=== PATIENT | female | born 1955 | race Caucasian/White ===

== ENCOUNTER 2020-04-15 08:35 | Outpatient (REF) | payer OTHER, SELFPAY ==
[2020-04-15 10:41] LABS: Anion Gap 13 (12-20); Blood Urea Nitrogen 10 mg/dL (9-16); Calcium 8.9 mg/dL (8.4-10.2); Carbon Dioxide 24 mmol/L (22-29); Chloride 107 mmol/L (96-108); Estimated Glomerular Filt Rate > 60; Glucose Fasting 101 mg/dL (60-99); Potassium 4.3 mmol/l (3.3-5.1); Sodium 140 mmol/L (135-145)
[2020-04-15 10:43] LABS: Cholesterol 246 mg/dL; HDL Cholesterol 51 mg/dL; LDL Cholesterol Calculated 158 mg/dl; Triglycerides 186 mg/dL
[2020-04-15 11:14] LABS: Creatinine Urine 64.57 mg/dL; Microalbumin Urine < 5.0 mg/L
== END 2020-04-15 08:36 | disposition home or self-care (01) ==
LOC: HO.WFDLDS 08:35
PROVIDERS: Visit Provider Family Medicine
DX: I10 Essential (primary) hypertension (principal)
CPT/HCPCS: 80048; 80061; 82043

== ENCOUNTER 2020-06-03 11:57 | Outpatient (REF) | payer OTHER, SELFPAY | END 2020-06-03 11:58 | disposition home or self-care (01) | LOC: HO.WFDLDS 11:57 | PROVIDERS: Visit Provider Family Medicine | DX: Z20.828 Contact with and (suspected) exposure to other viral communicable diseases (principal) | CPT/HCPCS: U0003 ==

== ENCOUNTER 2020-09-10 10:39 | Outpatient (REF) | payer MEDICARE, OTHER, SELFPAY ==
[2020-09-10 14:00] LABS: Cholesterol 271 mg/dL; HDL Cholesterol 52 mg/dL; LDL Cholesterol Calculated 186 mg/dl; Triglycerides 167 mg/dL
[2020-09-11 08:07] LABS: LDL Cholesterol Direct 182 mg/dL (<100)
== END 2020-09-10 10:40 | disposition home or self-care (01) ==
LOC: HO.WFDLDS 10:39
PROVIDERS: Visit Provider Family Medicine
DX: Z00.00 Encounter for general adult medical examination without abnormal findings (principal); E78.5 Hyperlipidemia, unspecified; R73.01 Impaired fasting glucose
CPT/HCPCS: 36415; 80061; 83721

== ENCOUNTER 2020-12-25 09:53 | Outpatient (REF) | payer MEDICARE, OTHER, SELFPAY ==
[2020-12-25 11:25] LABS: Anion Gap 13 (12-20); Blood Urea Nitrogen 12 mg/dL (9-16); Calcium 9.4 mg/dL (8.4-10.2); Carbon Dioxide 24 mmol/L (22-29); Chloride 108 mmol/L (96-108); Cholesterol 244 mg/dL; Estimated Glomerular Filt Rate > 60; Glucose Fasting 96 mg/dL (60-99); HDL Cholesterol 50 mg/dL; LDL Cholesterol Calculated 143 mg/dl; Potassium 4.5 mmol/L (3.3-5.1); Sodium 140 mmol/L (135-145); Triglycerides 259 mg/dL
== END 2020-12-25 09:54 | disposition home or self-care (01) ==
LOC: HO.WFDLNP 09:53
PROVIDERS: Visit Provider Family Medicine
DX: E78.5 Hyperlipidemia, unspecified (principal); Z00.00 Encounter for general adult medical examination without abnormal findings; I10 Essential (primary) hypertension; R73.01 Impaired fasting glucose
CPT/HCPCS: 80048; 80061

== ENCOUNTER 2021-03-11 08:57 | Outpatient (REF) | payer MEDICARE, OTHER, SELFPAY ==
--- NOTE | ~2021-03-11 | FL_ITS ---
EXAMINATION: FL BARIUM SWALLOW CLINICAL INFORMATION: Dysphagia COMPARISON: None TECHNIQUE: Barium swallow examination is performed using fluoroscopic evaluation in addition to multiple fluoroscopic spot views. The patient is imaged both upright and prone and using both thick and thin sulfate along with effervescent granules. Barium tablet was also administered. Fluoroscopy time: 1.2 minutes DAP: 8 Gycm2. Total dose 33 mGy. Images: 60 FINDINGS: The swallowing mechanism is normal. No aspiration or penetration is seen. There is slight mass effect on the posterior cervical esophagus from bony osteophyte. There is a small sliding-type hiatal hernia. There is mild gastroesophageal reflux. Esophageal motility is normal. The barium tablet passed freely into the stomach. FL/FL barium swallow IMPRESSION: Mild gastroesophageal reflux and small sliding-type hiatal hernia.
== END 2021-03-11 08:58 | disposition home or self-care (01) ==
LOC: HO.XRAY 08:57
PROVIDERS: PCP Family Medicine; Visit Provider Otolaryngology
DX: R13.10 Dysphagia, unspecified (principal)
CPT/HCPCS: 74220

== ENCOUNTER 2021-04-03 10:37 | Outpatient (REF) | payer MEDICARE, OTHER, SELFPAY ==
[2021-04-03 14:09] LABS: MANUAL DIFF FLAG NO
[2021-04-03 14:14] LABS: Basophils Percent Auto 0.6 % (0-2); Eosinophils Absolute Auto 0.1 X10*3/uL (0.0-0.4); Eosinophils Percent Auto 2.2 % (0-4); Hematocrit 39.1 % (37-47); Hemoglobin 13.2 g/dl (12.0-16.0); Imm Gran Abs Auto 0.01 X10*3/uL (0.00-0.03); Imm Gran Pct Auto 0.2 % (0.0-0.4); Lymphocytes Absolute Auto 1.5 X10*3/uL (1.2-4.9); Lymphocytes Percent Auto 27.2 % (20-40); Mean Corpuscular HGB Conc 33.8 g/dl (31.0-35.0); Mean Corpuscular Hemoglobin 30.9 pg (27.0-33.0); Mean Corpuscular Volume 91.6 fL (80-98); Mean Platelet Volume 11.3 fL (9.4-12.3); Monocytes Absolute Auto 0.5 X10*3/uL (0.1-1.2); Neutrophils Absolute Auto 3.3 X10*3/uL (2.0-8.3); Neutrophils Percent Auto 60.8 % (45-73); Platelet Count 231 X10*3/uL (160-400); Red Blood Count 4.27 X10*6/uL (4.20-5.50); Red Cell Distribution Width 11.7 % (11.0-16.0); White Blood Count 5.4 X10*3/uL (4.8-10.8)
[2021-04-03 14:44] LABS: Alanine Aminotransferase 18 U/L (0-31); Albumin Level 4.4 g/dL (3.5-5.0); Alkaline Phosphatase 52 U/L (39-117); Aspartate Amino Transferase 17 U/L (5-31); Bilirubin Direct 0.3 mg/dL (0.0-0.5); Bilirubin Total 1.2 mg/dL (0.0-1.0); Lipase 23 U/L (8-78); Total Protein 7.1 g/dL (6.5-8.0)
[2021-04-03 14:49] LABS: TSH reflex Free T4 2.73 uIU/mL (0.32-4.0)
[2021-04-05 13:40] LABS: Immunoglobulin A 268 mg/dL (70-320)
[2021-04-08 11:36] LABS: Transglutaminase IgA <1.0 U/mL
== END 2021-04-03 10:38 | disposition home or self-care (01) ==
LOC: HO.WFDLDS 10:37
PROVIDERS: Visit Provider Internal Medicine Gastroenterology
DX: R19.7 Diarrhea, unspecified (principal)
CPT/HCPCS: 36415; 80076; 82784; 83516; 83690; 84443; 85025

== ENCOUNTER 2021-04-04 08:09 | Outpatient (REF) | payer MEDICARE, OTHER, SELFPAY ==
[2021-04-04 11:20] LABS: Leukocytes Stool Qualitative NEGATIVE (NEGATIVE)
== END 2021-04-04 08:10 | disposition home or self-care (01) ==
LOC: HO.WFDLDS 08:09
PROVIDERS: Visit Provider Internal Medicine Gastroenterology
DX: R19.7 Diarrhea, unspecified (principal)
CPT/HCPCS: 36415; 87045; 87046; 87177; 87209; 89055

== ENCOUNTER 2021-12-04 10:58 | Outpatient (REF) | payer MEDICARE, OTHER, SELFPAY ==
[2021-12-04 13:51] LABS: Alanine Aminotransferase 20 U/L (0-31); Albumin Level 4.3 g/dL (3.5-5.0); Alkaline Phosphatase 60 U/L (39-117); Anion Gap 14 (12-20); Aspartate Amino Transferase 19 U/L (5-31); Bilirubin Total 1.2 mg/dL (0.0-1.0); Blood Urea Nitrogen 10 mg/dL (9-16); Calcium 10.1 mg/dL (8.4-10.2); Carbon Dioxide 24 mmol/L (22-29); Chloride 104 mmol/L (96-108); Cholesterol 262 mg/dL; Estimated Glomerular Filt Rate > 60; Glucose Fasting 102 mg/dL (60-99); HDL Cholesterol 58 mg/dL; LDL Cholesterol Calculated 175 mg/dl; Potassium 4.5 mmol/L (3.3-5.1); Sodium 137 mmol/L (135-145); Total Protein 7.2 g/dL (6.5-8.0); Triglycerides 145 mg/dL
[2021-12-04 14:12] LABS: Free T4 (Free Thyroxine) 0.93 ng/dL (0.71-1.85); Thyroid Stimulating Hormone 3.32 uIU/mL (0.32-4.0)
[2021-12-04 14:30] LABS: Creatinine Urine 51.36 mg/dL; Microalbum/Creatinine Ratio Ur 9.7 ug/mg cr
[2021-12-05 23:05] LABS: Triiodothyronine T3 Total 80 ng/dL (76-181)
== END 2021-12-04 10:59 | disposition home or self-care (01) ==
LOC: HO.WFDLDS 10:58
PROVIDERS: Visit Provider Family Medicine
DX: Z00.00 Encounter for general adult medical examination without abnormal findings (principal); E03.9 Hypothyroidism, unspecified; I10 Essential (primary) hypertension
CPT/HCPCS: 36415; 80053; 80061; 82043; 84439; 84443; 84480

== ENCOUNTER 2022-05-05 07:58 | Outpatient (REF) | payer MEDICARE, OTHER, SELFPAY ==
[2022-05-05 12:04] LABS: Estimated Average Glucose 103 mg/dL; Hemoglobin A1c % 5.2 %
[2022-05-05 12:25] LABS: Anion Gap 15 (12-20); Blood Urea Nitrogen 15 mg/dL (9-16); Calcium 9.4 mg/dL (8.4-10.2); Carbon Dioxide 24 mmol/L (22-29); Chloride 107 mmol/L (96-108); Cholesterol 276 mg/dL; Estimated Glomerular Filt Rate > 60; Glucose Fasting 102 mg/dL (60-99); HDL Cholesterol 48 mg/dL; LDL Cholesterol Calculated 178 mg/dl; Potassium 4.4 mmol/L (3.3-5.1); Sodium 142 mmol/L (135-145); Triglycerides 253 mg/dL
== END 2022-05-05 07:59 | disposition home or self-care (01) ==
LOC: HO.WFDLDS 07:58
PROVIDERS: Visit Provider Family Medicine
DX: Z00.00 Encounter for general adult medical examination without abnormal findings (principal); R73.01 Impaired fasting glucose
CPT/HCPCS: 36415; 80048; 80061; 83036

== ENCOUNTER 2022-08-04 08:23 | Outpatient (REF) | payer MEDICARE, OTHER, SELFPAY ==
[2022-08-04 12:43] LABS: Cholesterol 226 mg/dL; HDL Cholesterol 52 mg/dL; LDL Cholesterol Calculated 150 mg/dl; Triglycerides 123 mg/dL
== END 2022-08-04 08:24 | disposition home or self-care (01) ==
LOC: HO.WFDLDS 08:23
PROVIDERS: Visit Provider Family Medicine
DX: Z00.00 Encounter for general adult medical examination without abnormal findings (principal); E78.5 Hyperlipidemia, unspecified
CPT/HCPCS: 36415; 80061

== ENCOUNTER 2022-11-05 07:45 | Outpatient (REF) | payer MEDICARE, OTHER, SELFPAY ==
[2022-11-05 12:23] LABS: Estimated Average Glucose 100 mg/dL; Hemoglobin A1c % 5.1 %
[2022-11-05 12:29] LABS: Alanine Aminotransferase 16 U/L (0-31); Albumin Level 4.2 g/dL (3.5-5.0); Alkaline Phosphatase 69 U/L (39-117); Anion Gap 12 (12-20); Aspartate Amino Transferase 17 U/L (5-31); Bilirubin Total 1.4 mg/dL (0.0-1.0); Blood Urea Nitrogen 13 mg/dL (9-16); Calcium 9.3 mg/dL (8.4-10.2); Carbon Dioxide 25 mmol/L (22-29); Chloride 108 mmol/L (96-108); Estimated Glomerular Filt Rate > 60; Glucose Random 90 mg/dL (60-115); Potassium 4.4 mmol/L (3.3-5.1); Sodium 141 mmol/L (135-145); Total Protein 6.9 g/dL (6.5-8.0)
[2022-11-05 12:37] LABS: Creatinine Urine 61.95 mg/dL; Microalbumin Urine < 5.0 mg/L
[2022-11-05 13:00] LABS: Free T4 (Free Thyroxine) 0.85 ng/dL (0.71-1.85); Insulin 6 uU/mL (2-29); Thyroid Stimulating Hormone 5.49 uIU/mL (0.32-4.0)
[2022-11-06 17:53] LABS: Triiodothyronine T3 Total 80 ng/dL (76-181)
== END 2022-11-05 07:46 | disposition home or self-care (01) ==
LOC: HO.WFDLDS 07:45
PROVIDERS: Visit Provider Family Medicine
DX: I10 Essential (primary) hypertension (principal); R73.01 Impaired fasting glucose; E03.9 Hypothyroidism, unspecified
CPT/HCPCS: 36415; 80053; 82043; 83036; 83525; 84439; 84443; 84480

== ENCOUNTER 2022-12-10 11:14 | Outpatient (REF) | payer MEDICARE, OTHER, SELFPAY ==
[2022-12-10 13:35] LABS: Appearance Urine Clear; Color Urine Yellow; Glucose Urine UA Negative (Negative); Leukocyte Esterase Urine Negative (Negative); Nitrite Urine Negative (Negative); PH 5.5 (5.0-9.0); Specific Gravity - Urine 1.015 (1.005-1.025); Urine Blood Negative (Negative); Urine Ketones Trace mg/dL (Negative); Urine Protein Negative (Neg-Trace)
[2022-12-10 14:00] LABS: Microalbum/Creatinine Ratio Ur 6.9 ug/mg cr
[2022-12-10 14:08] LABS: Alanine Aminotransferase 14 U/L (0-31); Albumin Level 4.4 g/dL (3.5-5.0); Alkaline Phosphatase 65 U/L (39-117); Anion Gap 15 (12-20); Aspartate Amino Transferase 17 U/L (5-31); Bilirubin Total 1.2 mg/dL (0.0-1.0); Blood Urea Nitrogen 13 mg/dL (9-16); Calcium 9.8 mg/dL (8.4-10.2); Carbon Dioxide 22 mmol/L (22-29); Chloride 107 mmol/L (96-108); Cholesterol 242 mg/dL; Estimated Glomerular Filt Rate > 60; Glucose Fasting 82 mg/dL (60-99); HDL Cholesterol 62 mg/dL; LDL Cholesterol Calculated 163 mg/dl; Potassium 5.2 mmol/L (3.3-5.1); Sodium 139 mmol/L (135-145); Total Protein 7.3 g/dL (6.5-8.0); Triglycerides 89 mg/dL
[2022-12-10 14:21] LABS: Free T4 (Free Thyroxine) 1.01 ng/dL (0.71-1.85)
[2022-12-12 04:48] LABS: Triiodothyronine T3 Total 88 ng/dL (76-181)
== END 2022-12-10 11:15 | disposition home or self-care (01) ==
LOC: HO.WFDLDS 11:14
PROVIDERS: Visit Provider Family Medicine
DX: Z00.00 Encounter for general adult medical examination without abnormal findings (principal); E78.5 Hyperlipidemia, unspecified; I10 Essential (primary) hypertension; E03.9 Hypothyroidism, unspecified
CPT/HCPCS: 36415; 80053; 80061; 81003; 82043; 84439; 84443; 84480

== ENCOUNTER 2023-03-18 08:48 | Outpatient (AMB) | payer MEDICARE, OTHER, SELFPAY ==
--- NOTE | 2023-03-18 08:51 | A.OFFPC_ITS ---
Vital Signs 03/18/23 08:52 Height 5 ft 3 in Weight 122 lb BMI 21.6 BP 138/74 Blood Pressure Location Rt brachial Position Sitting Respiration 13 Pulse 72 Pulse Source Pulse Oximeter Temp 98.9 F Temp Source Temporal Artery Scan Pulse Oximetry (%) 99 Oxygen Delivery Method Room Air Intake Visit Reasons: Extended exam with f/u labs and health maintenance Intake Note: Patient expresses she has no concerns today. Patient reports she needs a refill on all prescriptions. 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 Labs were drawn 12/10/22. Reviewed labs with pt. Triglycerides 89. TC 242. LDL 163. HDL 62. She is on ezetimibe 10mg daily. TSH improved from 5.49 to 1.30. She is on levothyroxine 25 mcg. Pt reports last colonoscopy was in 2016 and has a f/u in 2026. 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 [facility] Surgical History History of bladder surgery History of foot surgery History of hysterectomy History of laparoscopy Family History Father CVD (cardiovascular disease) Mother Diabetes mellitus HTN (hypertension) Social History Housing: House Patient Tobacco Use Status: Former Tobacco user e-Cigarette/Vaping Use: Never Used Second Hand Smoke Exposure: No service: No Current occupational status: retired Current occupational exposures/hazards: No Cognitive needs: No Hearing needs: No Vision needs: No Questionnaire Thrive Questionnaire Date Thrive assessed: 08/06/22 PA-7 AMB Questionnaire PA-7 Date PA - 7 assessed: 08/06/22 Source: Developed by Drs. Doug Naik, Aminta Manzanares, Kerwin Dobson and colleagues, with an educational eveline from [employer]. Review of Systems Const Denies chills, Denies fatigue, Denies fever(s), Denies headache(s) and Denies weakness Eyes Denies change in vision ENT Denies dizziness, Denies headache(s), Denies hearing loss, Denies nasal congestion, Denies sinus pain, Denies sinus pressure and Denies sore throat Card Denies chest pain, Denies lightheadedness, Denies dyspnea and Denies other (palpitations) Resp Denies cough, Denies dyspnea and Denies wheezing GI Denies abdominal pain, Denies melena, Denies hematochezia, Denies change in bowel habits, Denies dyspepsia and Denies nausea Denies hematuria and Denies dysuria Musc Denies abnormal gait, Denies myalgias, Denies arthralgias, Denies numbness and Denies tingling Skin/Breast Denies rash, Denies unusual bruising and Denies wounds Neuro Denies abnormal gait, Denies dizziness, Denies headache(s), Denies memory loss, Denies numbness, Denies Sensory deficit (Neuro), Denies tingling and Denies weakness Psych Denies anxiety, Denies depression and Denies memory loss Endo Denies cold intolerance, Denies fatigue, Denies heat intolerance, Denies polydipsia and Denies polyuria Dylan/Lymph Denies easy bleeding and Denies easy bruising Aller/Immun Denies wheezing Physical exam (Primary Care) Vital Signs: Last Vital Signs Temp 98.9 F 03/18/23 08:52 Pulse 72 03/18/23 08:52 Resp 13 03/18/23 08:52 BP 138/74 03/18/23 08:52 Pulse Ox 99 03/18/23 08:52 Oxygen Delivery Method Room Air 03/18/23 08:52 BMI result Body Mass Index 21.6 Tobacco/Smoking Status: Tobacco use Status Tobacco use date assessed 08/06/22 03/18/23 08:59 Patient Tobacco Use Status Former Tobacco user 03/18/23 08:59 e-Cigarette/Vaping Use Never Used 03/18/23 08:59 Thrive Assessment: Date of Thrive Assessment Date Thrive assessed 08/06/22 03/18/23 08:59 Const General: no acute distress, well developed, alert and awake Nutritional Appearance: well nourished Orientation/consciousness: patient oriented x3 HENMT Head: Yes normocephalic and Yes atraumatic Ears: hearing grossly normal bilaterally and TM's normal bilaterally General nose exam: Normal external nose present and Normal nares present Mouth: Normal oral and palatal mucosa present and moist mucous membranes Teeth and gingiva: dentition normal Throat: Yes posterior oropharynx normal Eyes General: appearance normal, both eyes and all related structures Pupils: Equal, round and reactive pupils present and Pupil accommodation reflex normal EOM: EOMs intact bilaterally Neck Neck: Yes normal visual inspection, Yes no lymphadenopathy and Yes trachea midline Thyroid: Thyroid normal Carotids: no bruits Lymphatic: no lymphadenopathy noted Chest Chest palpation & inspection: normal inspection of the chest Resp Effort & Inspection: normal respiratory effort Auscultation: clear to auscultation bilaterally Cardio Rate: regular rate Rhythm: regular rhythm Heart sounds: S1 normal heart sound present, S2 normal heart sound present, no gallops, no murmurs and no rubs Bruits: no abdominal aortic bruits and no carotid bruits GI Palpation (GI): No Abdominal aortic bruit present, Soft to palpation, nontender, No hepatosplenomegaly present and No Rebound tenderness present Auscultation: normal bowel sounds General: Yes no CVA tenderness Back/Spine/Pelvis Back: no CVA tenderness Cervical Spine: cervical ROM normal and No Cervical spine tenderness Thoracic/Lumbar Spine: thoraco-lumbar ROM normal, No pain with thoraco-lumbar ROM, No thoracic spinal tenderness and No lumbar spinal tenderness Skin Lesions: no lesions Rashes: no rashes Trauma: no lacerations or abrasions Wounds: no wounds Nails: normal Neuro General: patient oriented x3 Cranial nerves: Yes Equal, round and reactive pupils present Cognition (Neuro): normal cognition Gait exam (Neuro): Normal gait present Motor exam (neuro): 5/5 motor strength present throughout Sensory Exam: No Sensory deficit (Neuro) Deep tendon reflexes (DTR's): Right patellar reflex intensity grade: 2+ and Left patellar reflex intensity grade: 2+ Extrem General: Yes normal to inspection and No edema Psych Appearance: grossly normal Affect: normal affect Attitude: cooperative Thought process: Normal thought process present Assessment and Plan Assessment & Plan (1) Hyperlipidemia: Code(s): E78.5 - Hyperlipidemia, unspecified Plan: LDL cholesterol is still too high and HDL is good but likely not fully protective. LDL has risen despite Zetia. Encouraged diet lower in saturated fats and cholesterol. Patient declines statin medications. (2) Essential hypertension: Code(s): I10 - Essential (primary) hypertension Plan: Blood pressure is controlled. Goal is less than 140/90 Continue diet control (3) Elevated TSH: Code(s): R79.89 - Other specified abnormal findings of blood chemistry Plan: Thyroid hormone levels are now in normal range Continue levothyroxine 25 mcg daily Will follow at next visit (4) Chronic diarrhea: Code(s): K52.9 - Noninfective gastroenteritis and colitis, unspecified Plan: Trial FiberCon soluble fiber tablet Hydrate well (5) Screening for colon cancer: Code(s): Z12.11 - Encounter for screening for malignant neoplasm of colon Plan: Followed by Dr. Sprague Last colonoscopy 2016 and she was told to follow-up in 2026 Up-to-date (6) Screening for cervical cancer: Code(s): Z12.4 - Encounter for screening for malignant neoplasm of cervix Plan: History of cervical cancer and followed by her home school coordinator [place] [facility] She says she has not had an appointment in about 4 years. Recommended she make an appointment and follow-up. Patient plans to do so. (7) Encounter for screening mammogram for breast cancer: Code(s): Z12.31 - Encounter for screening mammogram for malignant neoplasm of breast Plan: Patient says her last mammogram was last year and managed by her home school coordinator. She says this was normal. As above, I recommended she follow-up with her home school coordinator (8) Screening for osteoporosis: Code(s): Z13.820 - Encounter for screening for osteoporosis Plan: Managed by her home school coordinator. She says she has had a bone density test which was normal. She has not had a bone density test in the past 2 years so I recommended she follow-up with her home school coordinator to have this done as well. Patient agrees (9) Adult general medical exam: Code(s): Z00.00 - Encounter for general adult medical examination without abnormal findings Plan: 67-year-old female presents for extended exam Encouraged healthy diet with active lifestyle and plenty of exercise Medications: New calcium polycarbophil (FiberCon) 625 mg PO DAILY 30 days 30 tabs 2RF Refilled levothyroxine 25 mcg PO QAM 90 tabs 3RF lorazepam MassPat verified. Partial refill upon request. 0.5 mg PO DAILY 30 days PRN 30 tabs 0RF anxiety R73.01 - Impaired fasting glucose ezetimibe 10 mg PO DAILY 30 days 30 tabs 3RF zolpidem MassPat verified. Partial refill upon request. 5 mg PO BEDTIME 30 days PRN 30 tabs 0RF insomnia R73.01 - Impaired fasting glucose Coding Level of Care Code Est Pt Level 4 (61394) Diagnoses Hyperlipidemia E78.5 Essential hypertension I10 Elevated TSH R79.89 Chronic diarrhea K52.9 Screening for colon cancer Z12.11 Screening for cervical cancer Z12.4 Encounter for screening mammogram for breast cancer Z12.31 Screening for osteoporosis Z13.820 Adult general medical exam Z00.00
[2023-03-18 08:52] VITALS: BP 138/74; PULSE 72; RESP 13; TEMP 37.2; O2SAT 99; BMI 21.6
== END 2023-03-18 09:59 | disposition home or self-care (01) ==
PROVIDERS: PCP Family Medicine; Visit Provider Family Medicine
DX: E78.5 Hyperlipidemia, unspecified (principal); I10 Essential (primary) hypertension; R79.89 Other specified abnormal findings of blood chemistry; K52.9 Noninfective gastroenteritis and colitis, unspecified; Z12.11 Encounter for screening for malignant neoplasm of colon; Z12.4 Encounter for screening for malignant neoplasm of cervix; Z12.31 Encounter for screening mammogram for malignant neoplasm of breast; Z13.820 Encounter for screening for osteoporosis; Z00.00 Encounter for general adult medical examination without abnormal findings
CPT/HCPCS: 99214

== ENCOUNTER 2023-07-13 10:05 | Outpatient (REF) | payer MEDICARE, OTHER, SELFPAY ==
[2023-07-13 12:47] LABS: Alanine Aminotransferase 11 U/L (0-31); Albumin Level 4.3 g/dL (3.5-5.0); Alkaline Phosphatase 56 U/L (39-117); Anion Gap 13 (12-20); Aspartate Amino Transferase 14 U/L (5-31); Blood Urea Nitrogen 11 mg/dL (9-16); Calcium 9.5 mg/dL (8.4-10.2); Carbon Dioxide 25 mmol/L (22-29); Chloride 105 mmol/L (96-108); Cholesterol 252 mg/dL (<200); Estimated Glomerular Filt Rate > 60; Glucose Fasting 90 mg/dL (60-99); HDL Cholesterol 57 mg/dL (>40); LDL Cholesterol Calculated 168 mg/dL (<100); Potassium 4.8 mmol/L (3.3-5.1); Sodium 138 mmol/L (135-145); Total Protein 7.4 g/dL (6.5-8.0); Triglycerides 136 mg/dL (<150)
[2023-07-13 12:50] LABS: Free T4 (Free Thyroxine) 0.95 ng/dL (0.71-1.85); Thyroid Stimulating Hormone 2.61 uIU/mL (0.32-4.0)
[2023-07-15 02:54] LABS: Triiodothyronine T3 Total 93 ng/dL (76-181)
== END 2023-07-13 10:06 | disposition home or self-care (01) ==
LOC: HO.WFDLDS 10:05
PROVIDERS: Visit Provider Family Medicine
DX: Z00.00 Encounter for general adult medical examination without abnormal findings (principal); E03.9 Hypothyroidism, unspecified; E78.5 Hyperlipidemia, unspecified
CPT/HCPCS: 36415; 80053; 80061; 84439; 84443; 84480

== ENCOUNTER 2023-07-15 08:18 | Outpatient (AMB) | payer MEDICARE, OTHER, SELFPAY ==
[2023-07-15 08:27] VITALS: BP 118/64; PULSE 76; O2SAT 97; BMI 21.8
--- NOTE | 2023-07-15 08:27 | A.OFFPC_ITS ---
Vital Signs 07/15/23 08:27 Height 5 ft 3 in Weight 123 lb BMI 21.8 BP 118/64 Blood Pressure Location Lt brachial Position Sitting Pulse 76 Pulse Source Pulse Oximeter Pulse Oximetry (%) 97 Oxygen Delivery Method Room Air Intake Visit Reasons: f/u anxiety/thyroid levels Intake Note: Patient is here to follow up on thyroid levels and anxiety. Allergies No Known Allergies Allergy (Verified 07/15/23 08:28) Tobacco use date assessed: 07/15/23 Fall risk assessment: No Falls in past year Last assessed Fall Risk: 07/15/23 HPI f/u anxiety/thyroid levels HPI Details 67 y/o female presents to f/u anxiety, h ypothyroidism, and hyperlipidemia. Labs were drawn 07/13/23. Reviewed labs with pt. Triglcyerides 136. TC 252. LDL 168. HDL 57. She is on ezetimibe 10mg daily. TSH level 2.61 and she is on levothryoxine 25 mcg. PA-7 scoring an 8 today - mildly anxious. She feels she is stable right now. Pt reports an episode of chest pain before Thanksgi. [facility] Surgical History History of bladder surgery History of foot surgery History of hysterectomy History of laparoscopy Family History Father CVD (cardiovascular disease) Mother Diabetes mellitus HTN (hypertension) Social History Housing: House Patient Tobacco Use Status: Former Tobacco user e-Cigarette/Vaping Use: Never Used Second Hand Smoke Exposure: No service: No Current occupational status: retired Current occupational exposures/hazards: No Cognitive needs: No Hearing needs: No Vision needs: No Questionnaire PHQ-9 Over the last 2 weeks, how often have you been bothered by any of the following problems? 1. Little interest or pleasure in doing things: not at all 2. Feeling down, depressed, or hopeless: not at all 3. Trouble falling or staying asleep, or sleeping too much: several days 4. Feeling tired or having little energy: several days 5. Poor appetite or overeating: not at all 6. Feeling bad about yourself - or that you are a failure or have let yourself or your family down: not at all 7. Trouble concentrating on things, such as reading the newspaper or watching television: not at all 8. Moving or speaking so slowly that other people could have noticed. Or the opposite - being so fidgety or restless that you have been moving around a lot more than usual: not at all 9. Thoughts that you would be better off or of hurting yourself in some way: not at all Total score: 2 Depression Screening Interpretation: Negative Depression Screening Done: Yes 19752 - PHQ-9 Billing: Yes Source: Developed by Drs. Doug Naik, Aminta Manzanares, Kerwin Dobson and colleagues, with an educational eveline from [facility]. Thrive Questionnaire Date Thrive assessed: 08/06/22 PA-7 AMB Questionnaire PA-7 Date PA - 7 assessed: 07/15/23 Feeling nervous, anxious, or on edge: 1 = Several days Not being able to stop or control worryin = Several days Worrying too much about different things: 1 = Several days Trouble relaxin = Several days Being so restless that it is hard to sit still: 3 = Nearly every day Becoming easily annoyed or irritable: 0 = Not at all Feeling afraid as if something awful might happen: 1 = Several days Total PA-7 score (0-4 normal; 5-9 mild; 10-14 moderate; 15-21 severe): 8 Source: Developed by Drs. Doug Naik, Aminta Manzanares, Kerwin Dobson and colleagues, with an educational eveline from [facility]. PA-7 Assessment Billing PA-7 Assessment Tool: PA-7 Assessment [id number] Physical exam (Primary Care) Vital Signs: Last Vital Signs Pulse 76 07/15/23 08:27 BP 118/64 07/15/23 08:27 Pulse Ox 97 07/15/23 08:27 Oxygen Delivery Method Room Air 07/15/23 08:27 BMI result Body Mass Index 21.8 Tobacco/Smoking Status: Tobacco use Status Tobacco use date assessed 07/15/23 07/15/23 08:32 Patient Tobacco Use Status Former Tobacco user 07/15/23 08:32 e-Cigarette/Vaping Use Never Used 07/15/23 08:32 PHQ-9: PHQ-9 Score PHQ-9: Total score 2 07/15/23 08:40 Depression Screening Interpretation: Negative Thrive Assessment: Date of Thrive Assessment Date Thrive assessed 08/06/22 07/15/23 08:32 Assessment and Plan Assessment & Plan (1) Anxiety: Code(s): F41.9 - Anxiety disorder, unspecified Plan: Questionnaires?show?she?is?fairly?stable?and?patient?acknowledges?this. Continue?current?medication?regimen (2) Hypothyroidism: Code(s): E03.9 - Hypothyroidism, unspecified Plan: Thyroid?hormone?levels?are?within?normal?limits Continue?levothyroxine?as?prescribed (3) Hyperlipidemia: Code(s): E78.5 - Hyperlipidemia, unspecified Plan: Patient's?LDL?cholesterol?is?still?significantly?high?despite?using?Zetia. Had?a?long?discussion?with?patient?regarding?statin?medications.??She?still?want s?to?wait?until?our?next?visit. Patient?had?episode?of?chest?pain?around?Thanksgiving-see?below We?had?another?discussion?about?statin?medications. She?will?continue?to?work?on?lifestyle?changes?for?another?3?months?and?recheck? lipids?prior?to?next?visit. We?discussed?that?if?she?is?unable?to? make?a?significant?improvement?of?her?LDL?cholesterol?that?we?should?once?again? consider?using?a?statin?medication.??Patient?understands. (4) Chest pain: Code(s): R07.9 - Chest pain, unspecified Plan: Patient?had?an?episode?of?chest?pain?which?radiated?from?chest?into?both?arms. She?also?notes?that?she?was?lifting?heavy?dishes?and?pots/pans EKG: ?Normal?sinus?rhythm,?normal?axis,?normal?intervals,?no?hypertrophy,?no?ST-T-wav e?changes. Advised?her?if?she?is?having?pain?like?this?again ?she?should?be?checked?out?at?an?emergency?department?if?pain?is?lasting?longer? than?a?few?minutes Coding Level of Care Code Est Pt Level 4 (50874) Diagnoses Anxiety F41.9 Hypothyroidism E03.9 Hyperlipidemia E78.5 Chest pain R07.9 Additional Codes PA-7 Assessment Billing - PA-7 Assessment Tool: PA-7 Assessment [id number] ([id number])
== END 2023-07-15 09:16 | disposition home or self-care (01) ==
PROVIDERS: PCP Family Medicine; Visit Provider Family Medicine
DX: E03.9 Hypothyroidism, unspecified (principal); F41.9 Anxiety disorder, unspecified; E78.5 Hyperlipidemia, unspecified; R07.9 Chest pain, unspecified
CPT/HCPCS: 99214

== ENCOUNTER 2023-10-29 07:40 | Outpatient (REF) | payer MEDICARE, OTHER, SELFPAY ==
[2023-10-29 12:11] LABS: Alanine Aminotransferase 10 U/L (0-31); Albumin Level 4.3 g/dL (3.5-5.0); Alkaline Phosphatase 52 U/L (39-117); Anion Gap 11 (12-20); Aspartate Amino Transferase 14 U/L (5-31); Bilirubin Total 1.2 mg/dL (0.0-1.0); Blood Urea Nitrogen 11 mg/dL (9-16); Carbon Dioxide 27 mmol/L (22-29); Chloride 108 mmol/L (96-108); Cholesterol 242 mg/dL (<200); Estimated Glomerular Filt Rate > 60; Glucose Fasting 93 mg/dL (60-99); HDL Cholesterol 73 mg/dL (>40); LDL Cholesterol Calculated 151 mg/dL (<100); Sodium 142 mmol/L (135-145); Total Protein 7.2 g/dL (6.5-8.0); Triglycerides 94 mg/dL (<150)
== END 2023-10-29 07:41 | disposition home or self-care (01) ==
LOC: HO.WFDLDS 07:40
PROVIDERS: Visit Provider Family Medicine
DX: Z00.00 Encounter for general adult medical examination without abnormal findings (principal); E78.5 Hyperlipidemia, unspecified
CPT/HCPCS: 36415; 80053; 80061

== ENCOUNTER 2023-11-04 08:27 | Outpatient (AMB) | payer MEDICARE, OTHER, SELFPAY ==
--- NOTE | 2023-11-04 08:28 | A.OFFPC_ITS ---
Vital Signs 11/04/23 08:29 Height 5 ft 3 in Weight 127 lb 2 oz BMI 22.5 BP 138/78 Blood Pressure Location Rt brachial Position Sitting Respiration 13 Pulse 74 Pulse Source Pulse Oximeter Temp 97.6 F Temp Source Temporal Artery Scan Pulse Oximetry (%) 99 Oxygen Delivery Method Room Air Intake Visit Reasons: f/u hyperlipidemia Intake Note: Patient needs a refill on Levothyroxine and Zolpidem. 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 Accompanied by: Self / Same As Patient Allergies No Known Allergies Allergy (Verified 11/04/23 08:39) Medication List - Last Reconciled 11/04/23 by Bruce Hamilton MD calcium polycarbophil (FiberCon) 625 mg PO DAILY 30 days ezetimibe 10 mg PO DAILY 30 days levothyroxine 25 mcg PO QAM lorazepam 0.5 mg PO DAILY PRN 30 days zolpidem 5 mg PO BEDTIME PRN 30 days Tobacco use date assessed: 11/04/23 Fall risk assessment: No Falls in past year Last assessed Fall Risk: 11/04/23 Dental Screening Dental Screen Date: 11/04/23 Did you have a dental visit in the last 12 months?: Yes Did you have a dental problem in the last 6 months where you did not have access to dental care?: No Was dental information given to patient?: Patient has dentist HPI f/u hyperlipidemia HPI Details 68 y/o female presents to /u hyperlipid [facility]. Labs were drawn 10/29/23. Reviewed labs with pt. Triglcyerides 94. TC 242. LDL 151. HDL 73. She is on ezetimibe 10mg daily. Blood pressure today 138/78. She notes she frequently has blood pressures higher on L arm than R. Pt reports some difficulty sleeping. [facility] Medical History No pertinent past medical history Surgical History History of foot surgery History of laparoscopy History of bladder surgery History of hysterectomy Family History Father CVD (cardiovascular disease) Mother Diabetes mellitus HTN (hypertension) Social History (Updated 11/04/23 @ 08:42 by MADISYN Lee Household Members: Spouse Both parents involved: No Caregiver staying overnight: No Housing: House Are you a primary managed care nurse to a significant other at home: No Do you presently have visiting nurse or other home services: No 75 years or older and lives alone: No Patient Tobacco Use Status: Former Tobacco user e-Cigarette/Vaping Use: Never Used Second Hand Smoke Exposure: No service: No Current occupational status: retired Current occupational exposures/hazards: No Cognitive needs: No Hearing needs: No Vision needs: No Questionnaire Thrive Questionnaire Date Thrive assessed: 08/06/22 PA-7 AMB Questionnaire PA-7 Date PA - 7 assessed: 07/15/23 Source: Developed by Drs. Doug Naik, Aminta Manzanares, Kerwin Dobson and colleagues, with an educational eveline from [employer]. Review of Systems Const Denies chills, Denies fatigue, Denies fever(s), Denies headache(s) and Denies weakness ENT Denies dizziness and Denies headache(s) Card Denies dyspnea Resp Denies cough, Denies dyspnea, Denies wheezing and Denies other (shortness of breath) Musc Denies numbness and Denies tingling Neuro Denies dizziness, Denies headache(s), Denies numbness, Denies tingling and Denies weakness Psych Denies anxiety and Denies depression Endo Denies fatigue Aller/Immun Denies wheezing Physical exam (Primary Care) Vital Signs: Last Vital Signs Temp 97.6 F 11/04/23 08:29 Pulse 74 11/04/23 08:29 Resp 13 11/04/23 08:29 BP 138/78 11/04/23 08:29 Pulse Ox 99 11/04/23 08:29 Oxygen Delivery Method Room Air 11/04/23 08:29 BMI result Body Mass Index 22.5 Tobacco/Smoking Status: Tobacco use Status Tobacco use date assessed 11/04/23 11/04/23 08:42 Patient Tobacco Use Status Former Tobacco user 11/04/23 08:42 e-Cigarette/Vaping Use Never Used 11/04/23 08:42 Thrive Assessment: Date of Thrive Assessment Date Thrive assessed 08/06/22 11/04/23 08:29 Const General: well developed; No acute distress Nutritional Appearance: well nourished Orientation/consciousness: patient oriented x3 HENMT Head: Yes normocephalic and Yes atraumatic Eyes General: appearance normal, both eyes and all related structures Pupils: Equal, round and reactive pupils present EOM: EOMs intact bilaterally Resp Effort & Inspection: normal respiratory effort Neuro General: patient oriented x3 and gait normal Cranial nerves: Yes Equal, round and reactive pupils present Psych Affect: normal affect Assessment and Plan Assessment & Plan (1) Hyperlipidemia: Code(s): E78.5 - Hyperlipidemia, unspecified Plan: LDL?cholesterol?has?been?significantly?elevated.??HDL?is?desirably?high?but?annita mmending?she?work?on?lowering?LDL?cholesterol. Has?decreased?some?with?lifestyle?changes?and?Zetia?but?still?20?points?above?go al?for?her?LDL Trial?atorvastatin?20?mg?daily.??Continue?Zetia. (2) Essential hypertension: Code(s): I10 - Essential (primary) hypertension Plan: Blood?pressure?appear s?controlled?though?she?frequently?has?blood?pressures?that?are?higher?on?left?a rm?than?right Checking?echocardiogram (3) History of cervical cancer: Code(s): Z85.41 - Personal history of malignant neoplasm of cervix uteri Plan: Patient?notes?a?history?of?cervical?cancer Stable (4) Difficulty sleeping: Code(s): G47.9 - Sleep disorder, unspecified Plan: Ongoing?difficulty?sleeping.?? Symptoms?not?consistent?with?sleep?apnea Continue?current?medication?regimen Orders: Orders CA echo transthoracic complete Today R03.0 - Elevated blood-pressure reading, without diagnosis of hypertension Lipid Panel Today Z00.00 - Encounter for general adult medical examination without abnormal findings Comprehensive [place]. Panel Fast Today Z00.00 - Encounter for general adult medical examination without abnormal findings Medications: New atorvastatin 20 mg PO BEDTIME 90 days 90 tabs 2RF Refilled lorazepam MassPat verified. Partial refill upon request. 0.5 mg PO DAILY 30 days PRN 30 tabs 0RF anxiety zolpidem MassPat verified. Partial refill upon request. 5 mg PO BEDTIME 30 days PRN 30 tabs 0RF insomnia Coding Level of Care Code Est Pt Level 4 (40693) Diagnoses Hyperlipidemia E78.5 Essential hypertension I10 History of cervical cancer Z85.41 Difficulty sleeping G47.9
[2023-11-04 08:29] VITALS: BP 138/78; PULSE 74; RESP 13; TEMP 36.4; O2SAT 99; BMI 22.5
== END 2023-11-04 09:20 | disposition home or self-care (01) ==
PROVIDERS: PCP Family Medicine; Visit Provider Family Medicine
DX: E78.5 Hyperlipidemia, unspecified (principal); I10 Essential (primary) hypertension; Z85.41 Personal history of malignant neoplasm of cervix uteri; G47.9 Sleep disorder, unspecified
CPT/HCPCS: 99214

== ENCOUNTER → 2023-12-03 09:48 | Outpatient (REF) | payer MEDICARE, OTHER, SELFPAY ==
--- NOTE | 2023-12-03 09:52 | CA_ITS ---
Transthoracic Echocardiogram Patient (Last, First, Middle): Rosalina Gaxiola Ann Gender: Female Date of : 1955 Age: 68 Procedure Date: 12/03/2023 Procedure Type: Transthoracic Echocardiogram Location: OP Height: 160.02 cm Weight: 54.43 kg BSA: 1.56 m2 Heart Rate: 56 bpm BP: 122 / 74 mmHg Bone Glue Maker: SB Referring MD: Bruce Hamilton MD Symptoms: R03.0 - Elevated blood-pressure reading, without diagnosis of hypertension Study Quality: Adequate ECG Rhythm: Bradycardia Conclusions: - The left ventricular systolic function is normal. The visually estimated ejection fraction is between 55-60%. - No obvious valvular pathology seen on this study. Findings Left Ventricle Normal left ventricular cavity size. There is normal left ventricular wall thickness. The left ventricular systolic function is normal. The visually estimated ejection fraction is between 55-60%. There is no evidence of regional wall motion abnormalities. Diastolic function is normal for age. LV peak GLS -18.1%. Right Ventricle Normal right ventricular cavity size and systolic function. Atria Both atria are normal in size. Aortic Valve There is a normal trileaflet aortic valve. There is no aortic valve stenosis. There is no aortic valve regurgitation. Mitral Valve The mitral valve appears normal. There is trace mitral valve regurgitation. There is no mitral valve stenosis. Pulmonic Valve The pulmonic valve is likely normal. Tricuspid Valve Normal tricuspid valve structure. There is trace tricuspid valve regurgitation. There is no evidence of pulmonary hypertension. Great Vessels The asc aorta is normal in size. Venous The inferior vena cava is normal in size and collapses greater than 50% with inspiration. Pericardium/Pleural There is no evidence of pericardial effusion. Prior Study Comparison No prior study available for comparison. Recommendations, Care & Conclusions No obvious valvular pathology seen on this study. Measurements 2D Linear Measurements IVSd: 0.86 0.6-0.9/0.6-1.0 cm LVIDd: 4.56 3.9-5.3/4.2-5.9 cm LVIDd Index: 2.92 2.4-3.2/2.2-3.1 cm/m2 LVIDs: 2.82 2.0-3.6 cm LVPWd: 0.82 0.7-1.1 cm LA Diam: 3.30 2.7-3.8/3.0-4.0 cm LAIDs Index: 2.12 1.5-2.3 cm/m2 LV Mass: 152.86 67-162/88-224 g LV Mass Index: 97.99 43-95/49-115 g/m2 LVOT Diam: 2.00 3.0+(-)1.3 cm 2D Systolic Function EF 4C: 62.10 >55% EF 2C: 45.50 >55% EF BiP: 54.90 >55% Mitral Valve MV Pk E: 0.65 MV PK A: 0.49 MV Decel Time: 165.00 E/A: 1.30 E'Lateral: 5.33 E'Medial: 6.74 E/E' Med: 9.60 E/E' Lat: 12.10 PHT: 48.00 MVA PHT: 4.58 Decel Summers: 3.92 MR Alias Marcus: 0.39 MR RAD: 0.30 Aortic Valve AoV Pk Marcus: 1.13 AoV Mn Marcus: 0.79 AoV VTI: 0.26 AoV Pk Grad: 5.00 Aov Mn Grad: 3.00 DARLINE Cont.VTI: 1.92 LVOT LVOT Pk Marcus: 0.72 LVOT Mn Marcus: 0.54 LVOT VTI: 0.16 LVOT Pk Grad: 2.00 LVOT Mn Grad: 1.00 LVOT Diam: 2.00 LVOT Area: 3.14 Diastolic Function MV Pk E: 0.65 MV Pk A: 0.49 E/A: 1.30 E'Medial: 6.74 E/E' Med: 9.60 E' Laterial: 5.33 E/E' Lat: 12.10 Right Ventricle TAPSE (mm): 17.50 TVS' Marcus: 11.10 Tricuspid Valve TR Pk Marcus: 1.84 TR Pk Grad: 14.00 RA Press: 3.00 RVSP: 17.00 Great Vessels Aorta Sinus of Valsalva: 2.60 2.0-3.5 cm Ao Asc: 3.00 2.1-3.4 cm Ao Desc: 2.80 Pulmonary Valve PV Pk Marcus: 0.76 Peak PV Grad: 2.00 Updated in Other Vendor System with Status of Final John Choudhury MD electronically signed on 12/04/2023 12:54:59 PM with status of Final
== END ==
LOC: HO.CARD 09:48
PROVIDERS: PCP Family Medicine; Visit Provider Family Medicine
DX: R03.0 Elevated blood-pressure reading, without diagnosis of hypertension (principal)
CPT/HCPCS: 93306; 93356

== ENCOUNTER → 2023-12-03 09:52 | Outpatient (BNV) | payer MEDICARE, OTHER, SELFPAY | PROVIDERS: PCP Family Medicine; Visit Provider Internal Medicine | DX: I10 Essential (primary) hypertension (principal) | CPT/HCPCS: 93306; 93356 ==

== ENCOUNTER 2024-01-31 07:48 | Outpatient (REF) | payer MEDICARE, OTHER, SELFPAY ==
[2024-01-31 12:06] LABS: Alanine Aminotransferase 14 U/L (0-31); Albumin Level 4.3 g/dL (3.5-5.0); Alkaline Phosphatase 55 U/L (39-117); Anion Gap 10 (12-20); Aspartate Amino Transferase 15 U/L (5-31); Blood Urea Nitrogen 12 mg/dL (9-16); Calcium 9.7 mg/dL (8.4-10.2); Carbon Dioxide 27 mmol/L (22-29); Chloride 106 mmol/L (96-108); Cholesterol 222 mg/dL (<200); Estimated Glomerular Filt Rate > 60; Glucose Fasting 92 mg/dL (60-99); HDL Cholesterol 69 mg/dL (>40); LDL Cholesterol Calculated 137 mg/dL (<100); Potassium 4.2 mmol/L (3.3-5.1); Sodium 139 mmol/L (135-145); Triglycerides 80 mg/dL (<150)
== END 2024-01-31 07:49 | disposition home or self-care (01) ==
LOC: HO.WFDLDS 07:48
PROVIDERS: Visit Provider Family Medicine
DX: Z00.00 Encounter for general adult medical examination without abnormal findings (principal)
CPT/HCPCS: 36415; 80053; 80061

== ENCOUNTER 2024-02-03 08:18 | Outpatient (AMB) | payer MEDICARE, OTHER, SELFPAY ==
--- NOTE | 2024-02-03 08:29 | A.OFFPC_ITS ---
Vital Signs 02/03/24 08:33 Height 5 ft 3 in Weight 128 lb BMI 22.7 BP 132/70 Blood Pressure Location Lt brachial Position Sitting Respiration 12 Pulse 67 Pulse Source Pulse Oximeter Pulse Oximetry (%) 99 Oxygen Delivery Method Room Air Intake Visit Reasons: f/u HLD, chronic conditions Intake Note: Patient is here to follow up HLD and chronic conditions. Patient would like to discuss the [place] she [place] [facility] [place] 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 Also had discrepancies of blood pressures between R and L arms. Also f/u on echo. Labs drawn 01/31/24. Reviewed labs with pt. Triglycerides 80. TC 222. LDL 137. HDL 69. She is on artovastatin 20mg. Echocardiogram 12/03/23 showed normal L ventricular systolic function - visually estimated ejection fraction between 55-60%. No obvious valvular pathology seen. She reports neck pain. [facility] Medical History No pertinent past medical history Surgical History History of foot surgery History of laparoscopy History of bladder surgery History of hysterectomy Family History Father CVD (cardiovascular disease) Mother Diabetes mellitus HTN (hypertension) Social History (Updated 11/04/23 @ 08:42 by KIM Lee) Household Members: Spouse Both parents involved: No Caregiver staying overnight: No Housing: House Are you a primary direct support professional caregiver to a significant other at home: No Do you presently have visiting nurse or other home services: No 75 years or older and lives alone: No Patient Tobacco Use Status: Former Tobacco user e-Cigarette/Vaping Use: Never Used Second Hand Smoke Exposure: No service: No Current occupational status: retired Current occupational exposures/hazards: No Cognitive needs: No Hearing needs: No Vision needs: No Questionnaire Thrive Questionnaire Date Thrive assessed: 08/06/22 PA-7 AMB Questionnaire PA-7 Date PA - 7 assessed: 07/15/23 Source: Developed by Drs. Doug Naik, Aminta Manzanares, Kerwin Dobson and colleagues, with an educational eveline from [employer]. Physical exam (Primary Care) Vital Signs: Last Vital Signs Pulse 67 02/03/24 08:33 Resp 12 02/03/24 08:33 BP 132/70 02/03/24 08:33 Pulse Ox 99 02/03/24 08:33 Oxygen Delivery Method Room Air 02/03/24 08:33 BMI result Body Mass Index 22.7 Tobacco/Smoking Status: Tobacco use Status Tobacco use date assessed 11/04/23 02/03/24 08:30 Patient Tobacco Use Status Former Tobacco user 02/03/24 08:30 e-Cigarette/Vaping Use Never Used 02/03/24 08:30 Thrive Assessment: Date of Thrive Assessment Date Thrive assessed 08/06/22 02/03/24 08:30 Assessment and Plan Assessment & Plan (1) Encounter for examination of blood pressure with abnormal findings: Code(s): Z01.31 - Encounter for examination of blood pressure with abnormal findings Plan: Discrepancy?in?blood?pressure, greater?than?15?mm?Hg?between?right?and?left?arm Echocardiogram?normal?with?normal?great?vessels Normal?radial?pulses?bilateral?wrist?and?normal?warmth?and?color. No?claudication. Patient?does?not?smoke We?will?continue?to?monitor Should?get?blood?pressures?in?both?arms If?she?has?any?changes?will?refer?to?vascular (2) Hyperlipidemia: Code(s): E78.5 - Hyperlipidemia, unspecified Plan: Lipids?are?improved?on?atorvastatin?and?Zetia?but?still?not?at?goal?of?less?than ?100?for?LDL?cholesterol Will?try?switching?atorvastatin?to?rosuvastatin.??She?has?not?tolerated?higher?d oses?of?rosuvastatin?above?20?mg?daily.??Continuing?zetia (3) Cervicalgia: Code(s): M54.2 - Cervicalgia Plan: Will?give?her?a?short?script?of?cyclobenzaprine Also?recommended?ice/heat?and?Tylenol?or?ibuprofen?OTC Orders: Orders Complete Blood Count Auto Diff Today Z00.00 - Encounter for general adult medical examination without abnormal findings Lipid Panel Today Z00.00 - Encounter for general adult medical examination without abnormal findings Microalbumin, Random (w Creat) Today I10 - Essential (primary) hypertension TSH reflex Free T4 Today Z00.00 - Encounter for general adult medical examination without abnormal findings UA and rflx microscopic Today Z00.00 - Encounter for general adult medical examination without abnormal findings Comprehensive [place]. Panel Fast Today Z00.00 - Encounter for general adult medical examination without abnormal findings Medications: New rosuvastatin 20 mg PO DAILY 90 days 90 tabs 2RF cyclobenzaprine 5 mg PO BEDTIME 5 days PRN 5 tabs 0RF muscle spasm Refilled lorazepam [employer] verified. Partial refill upon request. 0.5 mg PO DAILY 30 days PRN 30 tabs 0RF anxiety zolpidem [employer] verified. Partial refill upon request. 5 mg PO BEDTIME 30 days PRN 30 tabs 0RF insomnia Discontinued atorvastatin Discontinued Reason: Doctor's Order 20 mg PO BEDTIME 90 days 90 tabs 2RF Coding Level of Care Code Est Pt Level 4 (54864) Diagnoses Encounter for examination of blood pressure with abnormal findings Z01.31 Hyperlipidemia E78.5 Cervicalgia M54.2
[2024-02-03 08:33] VITALS: BP 132/70; PULSE 67; RESP 12; O2SAT 99; BMI 22.7
== END 2024-02-03 09:15 | disposition home or self-care (01) ==
PROVIDERS: PCP Family Medicine; Visit Provider Family Medicine
DX: Z01.31 Encounter for examination of blood pressure with abnormal findings (principal); E78.5 Hyperlipidemia, unspecified; M54.2 Cervicalgia
CPT/HCPCS: 99214

== ENCOUNTER 2024-03-29 10:52 | Outpatient (REF) | payer MEDICARE, OTHER, SELFPAY ==
[2024-03-29 12:45] LABS: Appearance Urine Clear; Color Urine Yellow; Glucose Urine UA Negative (Negative); Leukocyte Esterase Urine Negative (Negative); Nitrite Urine Negative (Negative); PH 5.5 (5.0-9.0); Urine Blood Negative (Negative); Urine Ketones Negative (Negative); Urine Protein Negative (Neg-Trace)
[2024-03-29 12:47] LABS: MANUAL DIFF FLAG NO
[2024-03-29 13:06] LABS: Basophils Absolute Auto 0.1 X10*3/uL (0.0-0.2); Basophils Percent Auto 0.9 % (0-2); Eosinophils Absolute Auto 0.2 X10*3/uL (0.0-0.4); Eosinophils Percent Auto 2.8 % (0-4); Hematocrit 39.8 % (37.0-47.0); Hemoglobin 13.4 g/dl (12.0-16.0); Imm Gran Abs Auto 0.02 X10*3/uL (0.00-0.03); Imm Gran Pct Auto 0.3 % (0.0-0.4); Lymphocytes Absolute Auto 1.3 X10*3/uL (1.2-4.9); Lymphocytes Percent Auto 22.9 % (20-40); Mean Corpuscular HGB Conc 33.7 g/dl (31.0-35.0); Mean Corpuscular Hemoglobin 31.4 pg (27.0-33.0); Mean Corpuscular Volume 93.2 fL (80.0-98.0); Mean Platelet Volume 10.5 fL (9.4-12.3); Monocytes Absolute Auto 0.7 X10*3/uL (0.1-1.2); Monocytes Percent Auto 11.6 % (2-11); Neutrophils Absolute Auto 3.6 x10*3/uL (2.0-8.3); Neutrophils Percent Auto 61.5 % (45-73); Platelet Count 188 X10*3/uL (160-400); Red Blood Count 4.27 X10*6/uL (4.20-5.50); Red Cell Distribution Width 11.7 % (11.0-16.0); White Blood Count 5.8 X10*3/uL (4.8-10.8)
[2024-03-29 13:09] LABS: Alanine Aminotransferase 18 U/L (0-31); Albumin Level 4.3 g/dL (3.5-5.0); Alkaline Phosphatase 53 U/L (39-117); Anion Gap 12 (12-20); Aspartate Amino Transferase 17 U/L (5-31); Bilirubin Total 1.2 mg/dL (0.0-1.0); Blood Urea Nitrogen 15 mg/dL (9-16); Calcium 9.6 mg/dL (8.4-10.2); Carbon Dioxide 26 mmol/L (22-29); Chloride 106 mmol/L (96-108); Cholesterol 223 mg/dL (<200); Estimated Glomerular Filt Rate > 60; Glucose Fasting 99 mg/dL (60-99); HDL Cholesterol 58 mg/dL (>40); LDL Cholesterol Calculated 145 mg/dL (<100); Potassium 4.4 mmol/L (3.3-5.1); Sodium 140 mmol/L (135-145); Total Protein 7.1 g/dL (6.5-8.0); Triglycerides 103 mg/dL (<150)
[2024-03-29 13:20] LABS: Creatinine Urine 66.81 mg/dL; Microalbumin Urine < 5.0 mg/L
[2024-03-29 13:25] LABS: TSH reflex Free T4 2.76 uIU/mL (0.32-4.0)
== END 2024-03-29 10:53 | disposition home or self-care (01) ==
LOC: HO.WFDLDS 10:52
PROVIDERS: Visit Provider Family Medicine
DX: Z00.00 Encounter for general adult medical examination without abnormal findings (principal); I10 Essential (primary) hypertension
CPT/HCPCS: 36415; 80053; 80061; 81003; 82043; 82570; 84443; 85025

== ENCOUNTER 2024-04-10 08:52 | Outpatient (AMB) | payer MEDICARE, OTHER, SELFPAY ==
--- NOTE | 2024-04-10 09:03 | MHC.OFFWIV ---
Intake Vital Signs 04/10/24 09:06 Height 5 ft 3 in Weight 127 lb 2 oz BMI 22.5 BP 98/62 Blood Pressure Location Rt brachial Position Sitting Respiration 13 Pulse 78 Pulse Source Pulse Oximeter Temp 98.3 F Temp Source Oral Pulse Oximetry (%) 98 Oxygen Delivery Method Room Air Intake Visit Reasons: est/persistent cough Intake Note: patient complaining of persistent cough x 1 to 2 weeks. Patient Tobacco Use Status: Former Tobacco user Allergies No Known Allergies Allergy (Verified 04/10/24 09:14) Medication List - Last Reconciled 04/10/24 by Brigida Malone, SAP SPECIALIST- calcium polycarbophil (FiberCon) 625 mg PO DAILY 30 days ezetimibe 10 mg PO DAILY 30 days levothyroxine 25 mcg PO QAM lorazepam 0.5 mg PO DAILY PRN 30 days rosuvastatin 20 mg PO DAILY 90 days zolpidem 5 mg PO BEDTIME PRN 30 days Do you need a note to return to daycare/school/sports/work: No HPI HPI Comments History of Present Illness Details 68-year-old female here today with complaints of a productive cough for the last 10 days. She has been using [id number] medications without relief. She denies smoking. She denies any recent travel, no sick exposures, fever, chills, ear pain, runny nose, chest pain, shortness of breath. Does admit sore throat from coughing Exam Awake alert NAD Sclera and conjunctiva clear bilat Nares patent, turbinates within normal limits, no sinus tenderness with palpation bilat TM intact and clear bilat MMM, pharynx WNL RRR LS CTAB Plan No need for antibiotics at this time. Treat cough with Tessalon and cough syrup with codeine. Advised to avoid [id number] medications while taking the prescribed medications. Hydrate well. Supportive care. Could also try using Flonase which is available [id number]. Educated on reasons to return to the office or seek additional care. Also made aware that she should limit or avoid combining the cough syrup with codeine with her Ambien and Ativan which she reports that she does not take regularly This note is constructed using voice recognition software. While every effort has been made to ensure accuracy in energy audit advisor, still errors may have been included Sometimes, these errors may affect the content or meaning of the given sentence . on [facility] Medical History No pertinent past medical history Surgical History History of foot surgery History of laparoscopy History of bladder surgery History of hysterectomy Family History Father CVD (cardiovascular disease) Mother Diabetes mellitus HTN (hypertension) Social History (Updated 11/04/23 @ 08:42 by KIM Lee) Household Members: Spouse Both parents involved: No Caregiver staying overnight: No Housing: House Are you a primary post anesthesia care unit nurse to a significant other at home: No Do you presently have visiting nurse or other home services: No 75 years or older and lives alone: No Patient Tobacco Use Status: Former Tobacco user e-Cigarette/Vaping Use: Never Used Second Hand Smoke Exposure: No service: No Current occupational status: retired Current occupational exposures/hazards: No Cognitive needs: No Hearing needs: No Vision needs: No Physical Exam Vital Signs: Last Vital Signs Temp 98.3 F 04/10/24 09:06 Pulse 78 04/10/24 09:06 Resp 13 04/10/24 09:06 BP 98/62 04/10/24 09:06 Pulse Ox 98 04/10/24 09:06 Oxygen Delivery Method Room Air 04/10/24 09:06 BMI result Body Mass Index 22.5 Assessment & Plan Assessment & Plan (1) Viral URI with cough: Code(s): J06.9 - Acute upper respiratory infection, unspecified Plan: . Medications: New codeine-guaifenesin 10-100 mg/5 mL 10 mL PO ONCE 5 days PRN 50 mL 0RF cough benzonatate 100 mg PO TID 10 days PRN 30 caps 1RF cough Coding Level of Care Code Est Pt Level 3 (12022) Diagnoses Viral URI with cough J06.9
[2024-04-10 09:06] VITALS: BP 98/62; PULSE 78; RESP 13; TEMP 36.8; O2SAT 98; BMI 22.5
== END 2024-04-10 09:27 | disposition home or self-care (01) ==
PROVIDERS: PCP Family Medicine; Visit Provider Nurse Practitioner Family
DX: J06.9 Acute upper respiratory infection, unspecified (principal)

== ENCOUNTER → 2024-04-10 08:52 | Outpatient (BNVA) | payer MEDICARE, OTHER, SELFPAY | PROVIDERS: PCP Family Medicine | DX: J06.9 Acute upper respiratory infection, unspecified (principal) | CPT/HCPCS: 99212 ==

== ENCOUNTER 2024-04-19 13:32 | Outpatient (AMB) | payer MEDICARE, OTHER, SELFPAY ==
--- NOTE | 2024-04-19 13:34 | A.OFFPC_ITS ---
Vital Signs 04/19/24 13:38 Height 5 ft 3 in Weight 125 lb 8 oz BMI 22.2 BP 142/82 H Blood Pressure Location Lt brachial Position Sitting Respiration 15 Pulse 65 Pulse Source Pulse Oximeter Pulse Oximetry (%) 99 Oxygen Delivery Method Simple Mask Intake Visit Reasons: persistent cough medication wanted Intake Note: Patient complaining of persistent cough x 3 to 4 weeks Allergies No Known Allergies Allergy (Verified 04/19/24 14:08) Medication List - Last Reconciled 04/19/24 by EVA Rodriguez-DEVANG benzonatate 100 mg PO TID PRN 10 days calcium polycarbophil (FiberCon) 625 mg PO DAILY 30 days ezetimibe 10 mg PO DAILY 30 days levothyroxine 25 mcg PO QAM lorazepam 0.5 mg PO DAILY PRN 30 days rosuvastatin 20 mg PO DAILY 90 days zolpidem 5 mg PO BEDTIME PRN 30 days Tobacco use date assessed: 11/04/23 Dental Screening Dental Screen Date: 11/04/23 HPI HPI Comments History of Present Illness Details On 04/10/24 I saw here in the walk in: 68-year-old female here today with compl aints of a productive cough for the last 10 days. She has been using [id number] medications without relief. She denies smoking.She denies any recent travel, no sick exposures, fever, chills, ear pain, runny nose, chest pain, shortness of breath. Does admit sore throat from coughing Exam Awake alert NAD Sclera and conjunctiva clear bilat Nares patent, turbinates within normal limits, no sinus tenderness with palpation bilat TM intact and clear bilat MMM, pharynx WNL RRR LS CTAB Plan No need for antibiotics at this time. Treat cough with Tessalon and cough syrup with codeine. Advised to avoid okfn-nwe-ypsvsbv medications while taking the prescribed medications. Hydrate well. Supportive care. Could also try using Flonase which is available [id number]. Educated on reasons to return to the office or seek additional care. Also made aware that she should limit or avoid combining the cough syrup with codeine with her Ambien and Ativan which she reports that she does not take regularly Today she comes in she reports that she still has the cough. She reports that it is worse 1st thing in the morning and at night. She has a mild cough throughout the day. She did use Tessalon and it seemed to help some. She did take the cough syrup until it was gone and felt like this helped some as well. She says that she feels like she has congestion in her chest and feels like it just needs to break away. Otherwise she continues to deny any fever, chills, shortness of breath, chest pain. Exam Awake alert NAD Sclera and conjunctiva clear bilat Nares with some crusted purulent drainage, turbinates edematous bilat, no sinus tenderness with palpation bilat TM intact congestion bilat MMM, pharynx + postnasal drip RRR LS CTAB occasional hacking cough without distress Plan We will treat with Augmentin 1 tab p.o. b.i.d. x7 days. Advised to take with food. Advised to continue to use Flonase. Okay to use Tessalon for cough. Supportive care to include increased hydration. If cough does not improve after this treatment advised for her to follow up with her primary care provider. This note is constructed using voice recognition software. While every effort has been made to ensure accuracy in wash driller, still errors may have been included Sometimes, these errors may affect the content or meaning of the given sentence . Total time spent caring for the patient today was 30 minutes. This includes time spent before the visit reviewing the chart, time spent during the visit, and time spent after the visit on documentation [facility] Medical History No pertinent past medical history Surgical History History of foot surgery History of laparoscopy History of bladder surgery History of hysterectomy Family History Father CVD (cardiovascular disease) Mother Diabetes mellitus HTN (hypertension) Social History (Updated 11/04/23 @ 08:42 by KIM Lee) Household Members: Spouse Both parents involved: No Caregiver staying overnight: No Housing: House Are you a primary technical healthcare consultant to a significant other at home: No Do you presently have visiting nurse or other home services: No 75 years or older and lives alone: No Patient Tobacco Use Status: Former Tobacco user e-Cigarette/Vaping Use: Never Used Second Hand Smoke Exposure: No service: No Current occupational status: retired Current occupational exposures/hazards: No Cognitive needs: No Hearing needs: No Vision needs: No Questionnaire PHQ-9 Over the last 2 weeks, how often have you been bothered by any of the following problems? 1. Little interest or pleasure in doing things: not at all 2. Feeling down, depressed, or hopeless: not at all 3. Trouble falling or staying asleep, or sleeping too much: several days 4. Feeling tired or having little energy: not at all 5. Poor appetite or overeating: not at all 6. Feeling bad about yourself - or that you are a failure or have let yourself or your family down: not at all 7. Trouble concentrating on things, such as reading the newspaper or watching television: not at all 8. Moving or speaking so slowly that other people could have noticed. Or the opposite - being so fidgety or restless that you have been moving around a lot more than usual: not at all 9. Thoughts that you would be better off or of hurting yourself in some way: not at all Total score: 1 81321 - PHQ-9 Billing: Yes Source: Developed by Drs. Doug Naik, Aminta Manzanares, Kerwin Dobson and colleagues, with an educational eveline from [employer]. Thrive Questionnaire Date Thrive assessed: 04/19/24 I am a: Patient What is your living situation today?: I have a steady place to live Within the past 12 months, did the food you bought not last and you didn't have the money to get more?: Never true Within the past 12 months, did you worry whether your food would run out before you got money to buy more?: Never true Do you have trouble paying for medicines?: No Do you have trouble getting transportation to medical appointments?: No Do you have trouble taking care of your child, family member or friend?: No Do you have trouble with day-to-day activities such as bathing, preparing meals, shopping, managing finances, etc.?: No Are you currently unemployed and looking for a job?: No Are you interested in more education?: No THRIVE Score: 0 PA-7 AMB Questionnaire PA-7 Date PA - 7 assessed: 04/19/24 Feeling nervous, anxious, or on edge: 0 = Not at all Not being able to stop or control worryin = Not at all Worrying too much about different things: 0 = Not at all Trouble relaxin = Not at all Being so restless that it is hard to sit still: 0 = Not at all Becoming easily annoyed or irritable: 0 = Not at all Feeling afraid as if something awful might happen: 0 = Not at all Total PA-7 score (0-4 normal; 5-9 mild; 10-14 moderate; 15-21 severe): 0 Source: Developed by Drs. Doug Naik, Aminta Manzanares, Kerwin Dobson and colleagues, with an educational eveline from [employer]. PA-7 Assessment Billing PA-7 Assessment Tool: PA-7 Assessment 11041 Physical exam (Primary Care) Vital Signs: Last Vital Signs Pulse 65 04/19/24 13:38 Resp 15 04/19/24 13:38 BP 142/82 H 04/19/24 13:38 Pulse Ox 99 04/19/24 13:38 Oxygen Delivery Method Simple Mask 04/19/24 13:38 BMI result Body Mass Index 22.2 Tobacco/Smoking Status: Tobacco use Status Tobacco use date assessed 11/04/23 04/19/24 13:35 Patient Tobacco Use Status Former Tobacco user 04/19/24 13:35 e-Cigarette/Vaping Use Never Used 04/19/24 13:35 PHQ-9: PHQ-9 Score PHQ-9: Total score 1 04/19/24 14:05 Thrive Assessment: Date of Thrive Assessment Date Thrive assessed 04/19/24 04/19/24 13:42 Coding Level of Care Code Est Pt Level 4 (42604) Complex EM visit Add On G2211 Diagnoses Acute bacterial sinusitis J01.90; B96.89 Post-nasal drip R09.82 Upper respiratory infection with cough and congestion J06.9 Additional Codes PA-7 Assessment Billing - PA-7 Assessment Tool: PA-7 Assessment 63464 ([id number]) Assessment & Plan Assessment & Plan (1) Acute bacterial sinusitis: Code(s): J01.90 - Acute sinusitis, unspecified; B96.89 - Other specified bacterial agents as the cause of diseases classified elsewhere Plan: . (2) Post-nasal drip: Code(s): R09.82 - Postnasal drip Plan: . (3) Upper respiratory infection with cough and congestion: Code(s): J06.9 - Acute upper respiratory infection, unspecified Plan: . Medications: New amoxicillin-pot clavulanate 875-125 mg 1 tab PO BID 14 tabs 0RF 7 days Patient Instructions: What Is It? Sinuses are air-filled spaces behind the bones of the upper face: between the eyes and behind the forehead, nose and cheeks. The lining of the sinuses are made up of cells with tiny hairs on their surfaces called cilia. Other cells in the lining produce mucus. The mucus traps germs and pollutants and the cilia push the mucus out through narrow sinus openings into the nose. When the sinuses become inflamed or infected, the mucus thickens and clogs the openings to one or more sinuses. Fluid builds up inside the sinuses causing increased pressure. Also bacteria can become trapped, multiply and infect the lining. This is sinusitis. Prevention There are some measures you can take to decrease your risk of developing sinusitis. If you smoke cigarettes, you should quit. The smoke can irritate nasal passageways and increase the likelihood of infection. Nasal allergies can trigger sinus infections, too. By identifying the allergen (the substance causing the allergic reaction) and avoiding it, you can help prevent sinusitis. If you have congestion from a cold or allergies, the following may help to reduce the risk of developing sinusitis: Drink lots of water. This thins nasal secretions and keeps mucous membranes moist. Use steam to soothe nasal passages. Breathe deeply while standing in a hot shower, or inhale the vapor from a basin filled with hot water while holding a towel over your head. Avoid blowing your nose with great force, which can push bacteria into the sinuses. Some doctors advise periodic home nasal washings to clear secretions. This may help prevent, and also treat, sinus infections. Treatment Many sinus infections improve without treatment. However, several medications may speed recovery and reduce the chance that an infection will become chronic. Decongestants - Congestion often triggers sinus infections, and decongestants can open the sinuses and allow them to drain. Several are available: Pseudoephedrine (Sudafed) is available without prescription, alone or in combination with other medications in multi-symptom cold and sinus remedies. Pseudoephedrine can cause insomnia, racing pulse and jitteriness. Do not use if you have high blood pressure or a heart condition. Phenylephrine (such as Sudafed PE) is an alternative jxly-qgv-vwmxprh oral decongestant. If you take products containing oral phenylephrine, check with the pharmacist to be certain there is no interaction with other medications you take. Oxymetazoline (Afdebbie Dristan and others) and phenylephrine (Christiano-Synephrine and others) are found in nasal sprays. They are effective and may be less likely to cause the side effects seen with pseudoephedrine. However, using a nasal decongestant for more than three days can cause worse symptoms when you stop the medication. This is called the rebound effect. Antihistamines - These medications help to relieve the symptoms of nasal allergies that lead to inflammation and infections. However, some doctors advise against using antihistamines during a sinus infection because they can cause excessive drying and slow the drainage process. Rizy-czf-jcpbxpl antihistamines include diphenhydramine (Benadryl and others), chlorpheniramine (Chlor-Trimeton and others) and loratadine (Claritin). Fexofenadine (Janet) and cetrizine (Zyrtec) are available by prescription. Nasal steroids - Anti-inflammatory sprays such as mometasone (Nasonex) and fluticasone (Flonase), both available by prescription, reduce swelling of nasal membranes. Like antihistamines, nasal steroids can be most useful for those who have nasal allergies. Nasal steroids tend to produce less drying than antihistamines. Unlike nasal decongestants, nasal steroids can be used for prolonged periods. Saline nasal sprays - These salt-water sprays are safe to use and can provide some relief by adding moisture to the nasal passages, thinning mucus secretions and helping to flush out any bacteria that may be present. Pain relievers - Acetaminophen (Tylenol), ibuprofen (Advil, Motrin and others) or naproxen (Aleve) can be taken sinus pain. Antibiotics - Your doctor may prescribe an antibiotic if he or she suspects that a bacterial infection is causing your sinusitis. If you start taking an antibiotic, complete the entire course so that the infection is completely killed off. Not all cases of sinusitis require antibiotic treatment: Talk with your doctor about whether an antibiotic is right for you. Keep in mind that antibiotics can cause side effects, such as allergic reactions, rash and diarrhea. In addition, overusing antibiotics eventually leads to the spread of bacteria that no longer can be killed by the most commonly prescribed antibiotics. When To Call A Professional Contact a doctor if you experience facial pain along with a headache and fever, cold symptoms that last longer than seven to 10 days, or persistent green discharge from the nose. If your symptoms don't improve within a week of beginning treatment, call your doctor. Call sooner if symptoms are getting worse. If you have repeated bouts of acute sinusitis, you may have allergies or another treatable cause of sinus congestion. Ask your doctor for advice.
[2024-04-19 13:38] VITALS: BP 142/82; PULSE 65; RESP 15; O2SAT 99; BMI 22.2
== END 2024-04-19 14:10 | disposition home or self-care (01) ==
PROVIDERS: PCP Family Medicine; Visit Provider Nurse Practitioner Family
DX: J01.90 Acute sinusitis, unspecified (principal); B96.89 Other specified bacterial agents as the cause of diseases classified elsewhere; R09.82 Postnasal drip; J06.9 Acute upper respiratory infection, unspecified

== ENCOUNTER → 2024-04-19 13:32 | Outpatient (BNVA) | payer MEDICARE, OTHER, SELFPAY | PROVIDERS: PCP Family Medicine; Visit Provider Nurse Practitioner Family | DX: J01.90 Acute sinusitis, unspecified (principal); B96.89 Other specified bacterial agents as the cause of diseases classified elsewhere; R09.82 Postnasal drip; J06.9 Acute upper respiratory infection, unspecified | CPT/HCPCS: 96127; 99212 ==

== ENCOUNTER 2024-04-27 08:36 | Outpatient (AMB) | payer MEDICARE, OTHER, SELFPAY ==
--- NOTE | 2024-04-27 09:00 | A.OFFPC_ITS ---
Vital Signs 04/27/24 09:05 Height 5 ft 3 in Weight 126 lb 4 oz BMI 22.4 BP 137/59 L Blood Pressure Location Rt brachial Position Sitting Respiration 14 Pulse 79 Pulse Source Pulse Oximeter Temp 95.4 F L Temp Source Temporal Artery Scan Pulse Oximetry (%) 99 Oxygen Delivery Method Room Air Intake Visit Reasons: Diarrhea and cough Intake Note: diarrhea x1week and cough [id number] Allergies No Known Allergies Allergy (Verified 04/27/24 09:03) Tobacco use date assessed: 11/04/23 Dental Screening Dental Screen Date: 11/04/23 HPI Diarrhea and cough HPI Details Complaint?of?1?month?of?cough?and?1?week?of?diarrhea 1?month?of?cough?and?had?bee n?sick?but?now?just?has?lingering?cough?and?secretions. No?fever 1?week?of?diarrhea?but?had?had?a?sinusit is?and?was?given?Augmentin.? No?abdominal?pain She?notes?some?bright?red?blood?on?TTP?and?rawness.??No?bang?blood?in?both No?nausea?or?vomiting PFSH Medical History No pertinent past medical history Surgical History History of foot surgery History of laparoscopy History of bladder surgery History of hysterectomy Family History Father CVD (cardiovascular disease) Mother Diabetes mellitus HTN (hypertension) Social History (Updated 11/04/23 @ 08:42 by KIM Lee) Household Members: Spouse Housing: House Are you a primary customer care agent to a significant other at home: No Do you presently have visiting nurse or other home services: No Patient Tobacco Use Status: Former Tobacco user e-Cigarette/Vaping Use: Never Used Second Hand Smoke Exposure: No service: No Current occupational status: retired Current occupational exposures/hazards: No Cognitive needs: No Hearing needs: No Vision needs: No Questionnaire Thrive Questionnaire Date Thrive assessed: 04/19/24 PA-7 AMB Questionnaire PA-7 Date PA - 7 assessed: 04/19/24 Source: Developed by Drs. Doug Naik, Aminta Manzanares, Kerwin Dobson and colleagues, with an educational eveline from [email or web address]. Review of Systems Const Denies chills, Denies fatigue, Denies fever(s), Denies headache(s) and Denies weakness ENT Denies dizziness and Denies headache(s) Card Denies dyspnea Resp Denies cough, Denies dyspnea, Denies wheezing and Denies other ( shortness of breath) Musc Denies numbness and Denies tingling Neuro Denies dizziness, Denies headache(s), Denies numbness, Denies tingling, Denies paresthesias and Denies weakness Psych Denies anxiety and Denies depression Endo Denies fatigue Aller/Immun Denies wheezing Physical exam (Primary Care) Vital Signs: Last Vital Signs Temp 95.4 F L 04/27/24 09:05 Pulse 79 04/27/24 09:05 Resp 14 04/27/24 09:05 BP 137/59 L 04/27/24 09:05 Pulse Ox 99 04/27/24 09:05 Oxygen Delivery Method Room Air 04/27/24 09:05 BMI result Body Mass Index 22.4 Tobacco/Smoking Status: Tobacco use Status Tobacco use date assessed 11/04/23 04/27/24 09:01 Patient Tobacco Use Status Former Tobacco user 04/27/24 09:01 e-Cigarette/Vaping Use Never Used 04/27/24 09:01 Thrive Assessment: Date of Thrive Assessment Date Thrive assessed 04/19/24 04/27/24 09:01 Const General: no acute distress and well developed Nutritional Appearance: well nourished Orientation/consciousness: patient oriented x3 HENMT Head: Yes normocephalic and Yes atraumatic Eyes General: appearance normal, both eyes and all related structures Pupils: Equal, round and reactive pupils present EOM: EOMs intact bilaterally Resp Effort & Inspection: normal respiratory effort Auscultation: clear to auscultation bilaterally Cardio Rate: regular rate Rhythm: regular rhythm Heart sounds: S1 normal heart sound present, S2 normal heart sound present, no gallops, no murmurs and no rubs GI Other: Abdomen?is?soft,?nontender?and?nondistended.??Bowel?sounds?present.??No?TTP/rebo und. Neuro General: patient oriented x3 and gait normal Cranial nerves: Yes Equal, round and reactive pupils present Psych Affect: normal affect Coding Level of Care Code Est Pt Level 3 (36916) Diagnoses Diarrhea R19.7 Cough R05.9 Assessment & Plan Assessment & Plan (1) Diarrhea: Code(s): R19.7 - Diarrhea, unspecified Category: Medical Plan: Diarrhea?times?a?week?and?patient?had?been?on?antibiotics. Likely?antibiotic?associated?diarrhea?though?patient?does?get? frequent/chronic?bouts?of?diarrhea Hydrate?well Check?labs?including?stool?studies Hydrate?well?and?drink?plenty?of?clear?liquids Avoid?hard?to?digest?foods?and?dairy Can?use?a?probiotic She?has?an?upcoming?appointment?and?we?can?follow-up (2) Cough: Code(s): R05.9 - Cough, unspecified Category: Medical Plan: Cough?x1?month. She?had?been?sick?previously?but?now?just?has?cough. 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 Panel Today R19.7 - Diarrhea, unspecified Complete Blood Count Auto Diff Today R19.7 - Diarrhea, unspecified, Z00.00 - Encounter for general adult medical examination without abnormal findings GI Panel Today R19.7 - Diarrhea, unspecified CDiff Gene PCR Today R19.7 - Diarrhea, unspecified XR chest 2V Today R05.9 - Cough, unspecified
[2024-04-27 09:05] VITALS: BP 137/59; PULSE 79; RESP 14; TEMP 35.2; O2SAT 99; BMI 22.4
== END 2024-04-27 09:55 | disposition home or self-care (01) ==
PROVIDERS: PCP Family Medicine; Visit Provider Family Medicine
DX: R19.7 Diarrhea, unspecified (principal); R05.9 Cough, unspecified

== ENCOUNTER 2024-04-27 10:02 | Outpatient (REF) | payer MEDICARE, OTHER, SELFPAY ==
[2024-04-27 11:00] LABS: MANUAL DIFF FLAG NO
[2024-04-27 11:13] LABS: Basophils Absolute Auto 0.1 X10*3/uL (0.0-0.2); Basophils Percent Auto 1.2 % (0-2); Eosinophils Absolute Auto 0.3 X10*3/uL (0.0-0.4); Eosinophils Percent Auto 3.7 % (0-4); Hematocrit 37.3 % (37.0-47.0); Hemoglobin 12.7 g/dl (12.0-16.0); Imm Gran Abs Auto 0.03 X10*3/uL (0.00-0.03); Imm Gran Pct Auto 0.4 % (0.0-0.4); Lymphocytes Absolute Auto 1.3 X10*3/uL (1.2-4.9); Lymphocytes Percent Auto 16.7 % (20-40); Mean Corpuscular Hemoglobin 30.9 pg (27.0-33.0); Mean Corpuscular Volume 90.8 fL (80.0-98.0); Mean Platelet Volume 10.6 fL (9.4-12.3); Monocytes Absolute Auto 0.6 X10*3/uL (0.1-1.2); Monocytes Percent Auto 7.5 % (2-11); Neutrophils Absolute Auto 5.3 x10*3/uL (2.0-8.3); Neutrophils Percent Auto 70.5 % (45-73); Platelet Count 191 X10*3/uL (160-400); Red Blood Count 4.11 X10*6/uL (4.20-5.50); Red Cell Distribution Width 11.6 % (11.0-16.0); White Blood Count 7.6 X10*3/uL (4.8-10.8)
[2024-04-27 11:53] LABS: Alanine Aminotransferase 19 U/L (0-31); Alkaline Phosphatase 58 U/L (39-117); Anion Gap 10 (12-20); Aspartate Amino Transferase 19 U/L (5-31); Bilirubin Total 1.5 mg/dL (0.0-1.0); Blood Urea Nitrogen 12 mg/dL (9-16); Calcium 9.1 mg/dL (8.4-10.2); Carbon Dioxide 25 mmol/L (22-29); Chloride 108 mmol/L (96-108); Estimated Glomerular Filt Rate > 60; Glucose Random 108 mg/dL (60-115); Potassium 3.7 mmol/L (3.3-5.1); Sodium 139 mmol/L (135-145); Total Protein 6.6 g/dL (6.5-8.0)
== END 2024-04-27 10:03 | disposition home or self-care (01) ==
LOC: HO.WFDLDS 10:02
PROVIDERS: Visit Provider Family Medicine
DX: Z00.00 Encounter for general adult medical examination without abnormal findings (principal); R19.7 Diarrhea, unspecified
CPT/HCPCS: 36415; 80053; 85025; 99212

== ENCOUNTER 2024-04-28 09:48 | Outpatient (REF) | payer MEDICARE, OTHER, SELFPAY ==
--- NOTE | ~2024-04-28 | XR_ITS ---
EXAMINATION: XR CHEST CLINICAL INFORMATION: Cough. COMPARISON: October 19, 2016 TECHNIQUE: 2 views of the chest were obtained. FINDINGS: The lungs are well expanded. No focal consolidation. No pleural effusion. Cardiac silhouette is within normal limits. XR/XR chest 2V IMPRESSION: No acute abnormality. Electronically signed by: Darell Mancera MD 05/12/2024 01:19 [facility]
[2024-04-28 11:49] LABS: CDiff Gene PCR NEGATIVE (Negative)
== END 2024-04-28 09:49 | disposition home or self-care (01) ==
LOC: HO.XRAY 09:48
PROVIDERS: PCP Family Medicine; Visit Provider Family Medicine
DX: R05.9 Cough, unspecified (principal); R19.7 Diarrhea, unspecified
CPT/HCPCS: 71046; 87493

== ENCOUNTER 2024-04-29 08:17 | Outpatient (REF) | payer MEDICARE, OTHER, SELFPAY ==
[2024-04-29 12:07] LABS: Adenovirus F 40/41 Not Detected (Not Detect.); Astrovirus Not Detected (Not Detect.); Campylobacter Detected (Not Detect.); Cryptosporidium Not Detected (Not Detect.); Cyclospora cayetanensis Not Detected (Not Detect.); E. coli EAEC Not Detected (Not Detect.); E. coli EPEC Not Detected (Not Detect.); E. coli ETEC Not Detected (Not Detect.); E. coli STEC Not Detected (Not Detect.); Entamoeba histolytica Not Detected (Not Detect.); Giardia lamblia Not Detected (Not Detect.); Plesiomonas shigelloides Not Detected (Not Detect.); Rotavirus A Not Detected (Not Detect.); Salmonella Not Detected (Not Detect.); Shigella sp./EIEC Not Detected (Not Detect.); Vibrio Not Detected (Not Detect.); Vibrio Cholerae Not Detected (Not Detect.); Yersinia enterocolitica Not Detected (Not Detect.)
[2024-04-29 13:40] LABS: Sapovirus Not Detected (Not Detect.)
[2024-05-02 15:25] LABS: Norovirus Stool PCR NOT DETECTED
== END 2024-04-29 08:18 | disposition home or self-care (01) ==
LOC: HO.LNP 08:17
PROVIDERS: Visit Provider Family Medicine
DX: R19.7 Diarrhea, unspecified (principal)
CPT/HCPCS: 87507

== ENCOUNTER 2024-05-04 10:46 | Outpatient (AMB) | payer MEDICARE, OTHER, SELFPAY ==
--- NOTE | 2024-05-04 11:13 | MHC.PC.OV ---
Vital Signs 05/04/24 11:15 Height 5 ft 3 in Weight 125 lb 2 oz BMI 22.2 BP 147/67 H Blood Pressure Location Rt brachial Position Sitting Respiration 16 Pulse 76 Pulse Source Pulse Oximeter Temp 99.5 F Temp Source Temporal Artery Scan Pulse Oximetry (%) 99 Oxygen Delivery Method Room Air Intake Visit Reasons: Extended exam with f/u labs and health maint. Allergies No Known Allergies Allergy (Verified 05/04/24 11:14) Tobacco use date assessed: 11/04/23 Dental Screening Dental Screen Date: 11/04/23 HPI Extended exam with f/u labs and health maint. HPI Details 68 y/o female presents to f/u diarrhea/cough. Notes diarrhea has resolved. Was tested positive for campylobacter. Reports ongoing cough. [facility] Medical History No pertinent past medical history Surgical History History of foot surgery History of laparoscopy History of bladder surgery History of hysterectomy Family History Father CVD (cardiovascular disease) Mother Diabetes mellitus HTN (hypertension) Social History (Updated 11/04/23 @ 08:42 by KIM Lee) Household Members: Spouse Both parents involved: No Caregiver staying overnight: No Housing: House Are you a primary respiratory care technician to a significant other at home: No Do you presently have visiting nurse or other home services: No 75 years or older and lives alone: No Patient Tobacco Use Status: Former Tobacco user e-Cigarette/Vaping Use: Never Used Second Hand Smoke Exposure: No service: No Current occupational status: retired Current occupational exposures/hazards: No Cognitive needs: No Hearing needs: No Vision needs: No Questionnaire Thrive Questionnaire Date Thrive assessed: 04/19/24 PA-7 AMB Questionnaire PA-7 Date PA - 7 assessed: 04/19/24 Source: Developed by Drs. Doug Naik, Aminta Manzanares, Kerwin Dobson and colleagues, with an educational eveline from [email or web address]. Review of Systems Const Denies chills, Denies fatigue, Denies fever(s), Denies headache(s) and Denies weakness ENT Denies dizziness and Denies headache(s) Card Denies dyspnea Resp Reports cough, Denies dyspnea and Denies wheezing Musc Denies numbness and Denies tingling Neuro Denies dizziness, Denies headache(s), Denies numbness, Denies tingling and Denies weakness Psych Denies anxiety and Denies depression Endo Denies fatigue Aller/Immun Denies wheezing Physical exam (Primary Care) Vital Signs: Last Vital Signs Temp 99.5 F 05/04/24 11:15 Pulse 76 05/04/24 11:15 Resp 16 05/04/24 11:15 BP 147/67 H 05/04/24 11:15 Pulse Ox 99 05/04/24 11:15 Oxygen Delivery Method Room Air 05/04/24 11:15 BMI result Body Mass Index 22.2 Tobacco/Smoking Status: Tobacco use Status Tobacco use date assessed 11/04/23 05/04/24 11:16 Patient Tobacco Use Status Former Tobacco user 05/04/24 11:16 e-Cigarette/Vaping Use Never Used 05/04/24 11:16 Thrive Assessment: Date of Thrive Assessment Date Thrive assessed 04/19/24 05/04/24 11:16 Const General: well developed; No acute distress Nutritional Appearance: well nourished Orientation/consciousness: patient oriented x3 HENMT Head: Yes normocephalic and Yes atraumatic Eyes General: appearance normal, both eyes and all related structures Pupils: Equal, round and reactive pupils present EOM: EOMs intact bilaterally Resp Effort & Inspection: normal respiratory effort Neuro General: patient oriented x3 and gait normal Cranial nerves: Yes Equal, round and reactive pupils present Psych Affect: normal affect Coding Level of Care Code Est Pt Level 3 (62151) Diagnoses Cough R05.9 Diarrhea R19.7 Essential hypertension I10 Assessment & Plan Assessment & Plan (1) Cough: Code(s): R05.9 - Cough, unspecified Category: Medical Plan: Still?has?mild?residual?cough. 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 GI?panel?was?positive?for?Campylobacter.??She?has?been?called?by?the?health?department?but?she?is?unaware?of?any?restaurants?or?places?she?may?have?acquired?it. As?above,?her?symptoms?are?already?resolved?and?had?begun?more?than?a?week?ago.??This?is?a?self-limiting?disease?and?appears?resolved. Out?of?an?abundance?of?caution?I?recommended?that?she?avoid?preparing?anyone?else's?food?or?touching?there?utensils?for?another?5-7?days.??Wash?hands?frequently. (3) Essential hypertension: Code(s): I10 - Essential (primary) hypertension Category: Medical Plan: Patient?checks?her?blood?pressures?at?home?which?have?been?a?little?elevated?since?she?has?been?coughing Will?follow-up?at?next?visit
[2024-05-04 11:15] VITALS: BP 147/67; PULSE 76; RESP 16; TEMP 37.5; O2SAT 99; BMI 22.2
== END 2024-05-04 11:28 | disposition home or self-care (01) ==
LOC: HO.HMCFM 10:47
PROVIDERS: PCP Family Medicine; Visit Provider Family Medicine
DX: R05.9 Cough, unspecified (principal); R19.7 Diarrhea, unspecified; I10 Essential (primary) hypertension

== ENCOUNTER → 2024-05-04 10:46 | Outpatient (BNVA) | payer MEDICARE, OTHER, SELFPAY | PROVIDERS: PCP Family Medicine; Visit Provider Family Medicine | DX: R19.7 Diarrhea, unspecified (principal); I10 Essential (primary) hypertension; R05.9 Cough, unspecified | CPT/HCPCS: 99212 ==

== ENCOUNTER 2024-08-03 07:51 | Outpatient (REF) | payer MEDICARE, OTHER, SELFPAY ==
--- NOTE | ~2024-08-03 | CT_ITS ---
CLINICAL HISTORY: RLQ ABD PAIN CT abdomen and pelvis with contrast Comparison: None Findings: The lung bases are clear. A small hepatic cyst is noted. There is a small periampullary duodenum diverticulum. GI tract is otherwise unremarkable. There is no evidence of appendicitis. The patient is status post hysterectomy. No acute fracture. There is severe chronic degenerative disc disease at the L5-S1 level with significant spondylolisthesis. IMPRESSION: No acute findings. Small periampullary duodenum diverticulum. Other findings as above. This document has been electronically signed by: Dontae Smith MD on 08/03/2024 12:33:57
[2024-08-03] MEDS: iohexoL 350 MG/ML 100 ML INFUS..BTL IV (10:46)
[2024-08-03] MEDS: Barium Sulfate Oral (Vanilla) 450 ML ORAL.SUSP PO ×2 (10:47)
--- OUTSIDE RECORDS SUMMARY | 2024-08-03 10:47 | XMS_ITS ---
Author Organization [facility] Address [address] [place] [address] Care Team Providers Care Turbine Assembler Name Role Phone Bruce Hamilton Primary Care Provider Unavailab Lopez Lagunas Jr [phone] REASON FOR VISIT lab results Encounters Encounter Location Date Provider Diagnosis [facility] [address] [place] [address] 04/06/2024 Lopez Sprague Jr PLAN OF TREATMENT No Information
--- OUTSIDE RECORDS SUMMARY | 2024-08-03 10:47 | XMS_ITS | Patient Health Record ---
Author Organization [facility] Address [address] [place] [address] Care Team Providers Care Mill Roll Operator Name Role Phone Bruce Hamilton Primary Care Provider Unavailab Lopez Lagunas Jr Unavailable [phone] ALLERGIES No Known Allergies REASON FOR REFERRAL No Information MEDICATIONS Medication SIG (Take, Route, Frequency, Duration) Notes Start Date End Date Status LORazepam 0.5 MG 1 tablet at bedtime as needed Orally prn Active Levothyroxine Sodium 25 MCG TK 1 T PO QAM OES Orally Once a day Active Lomotil 2.5-0.025 MG 1 tablet as needed for diarrhea Orally Four times a day for 30 days 04/01/2021 Not-Taking Zolpidem Tartrate 5 MG 1 tablet at bedti me as needed Orally Once a day Active IMMUNIZATIONS Vaccine Route Administration Date Status Comme nts Influenza Unknown 09/07/2019 Refused Influenza Unknown 06/08/2022 Refused Influenza Unknown 06/09/2023 Refused SOCIAL HISTORY Sex Assigned At : Social History Observation Description Sex Assigned At Unknown Alcohol Screen Question Answer Notes Did you have a drink contain ing alcohol in the past year? Yes How often did you have a dri nk containing alcohol in the past year? 2 to 4 times a month (2 points) How many drinks did you have on a typical day when you were drinking in the past year? 1 or 2 drinks (0 point) How often did you have 6 or more drinks on one occasion in the past year? Never (0 point) Points 2 Interpretation Negative PROBLEMS Problem Type ICD Code Onset Dates Problem Status W/U Status Risk SNOMED Code Notes Problem Colon cancer screening (Z12.11) Active confirmed 863687939 Problem Encounter for other preprocedural examination (Z01.818) Active confirmed 98357030 Problem Irritable bowel syndrome with diarrhea (K58.0) Active confirmed 206312098 Problem Gastroesophageal reflux disease without esophagitis (K21.9) Active confirmed 749083069 Problem RLQ abdominal pain (R10.31) Active confirmed 096349143 VITAL SIGNS Blood pressure diastolic 00 mm Hg 06/14/2024 Height 62.50 in 06/14/2024 Blood pressure systolic 00 mm Hg 06/14/2024 Weight 116 lbs 06/14/2024 BMI 20.88 kg/m2 06/14/2024 Encounters Encounter Location Date Provider Diagnosis [facility] [address] [place] [phone] 06/14/2024 Lopez Sprague Jr RLQ abdominal pain R10.31 ; Gastroesophageal reflux disease without esophagitis K21.9 and Irritable bowel syndrome with diarrhea K58.0 [facility] [address] [place] [phone] 03/27/2024 Lopze Sprague Jr Rectal bleeding K62.5 [facility] [address] [place] [phone] 04/06/2024 Lopez Sprague Jr ASSESSMENTS Encounter Date Diagnosis Assessment Notes Treatment Notes Treatment Clinical Notes 06/14/2024 Gastroesophageal ref lux disease without esophagitis (ICD-10 - K21.9) 06/14/2024 RLQ abdominal pain (ICD-10 - R10.31) Irritable bowel syndrome material was printed 03/27/2024 Rectal bleeding (ICD -10 - K62.5) 06/14/2024 Irritable bowel syndrome with diarrhea (ICD-10 - K58.0) PLAN OF TREATMENT Pending Test Test Name Order Date LIVER PROFILE 02/17/2012 LIVER PROFILE 03/27/2024 LIVER PROFILE 04/01/2021 LIPASE 04/01/2021 LIPASE 03/27/2024 CBC with MANUAL DIFFERENTIAL 02/17/2012 CBC w/o DIFF 04/01/2021 CBC w/o DIFF 03/27/2024 SED RATE (ESR) 02/17/2012 CLOSTRIDIUM DIFF TOXIN A&B (C DIFF) 02/02 STOOL WBC 02/17/2012 CELIAC PANEL #10 02/17/2012 ENDOMYSIAL IGA 02/17/2012 IgA 04/01/2021 TRANSGLUTAMINASE AB IGA 02/17/2012 TRANSGLUTAMINASE AB IGA 04/01/2021 TRANSGLUTAMINASE AB IGG 02/17/2012 CELIAC DISEASE ANTIBODY PANEL 12/28/2013 OVA & PARASITES (O&P) 02/17/2012 OVA & PARASITES (O&P) 04/01/2021 CULTURE, STOOL 02/17/2012 CT ABD & PELVIS WITH CONTRAST 06/14/2024 XR GI HIGH DENSITY SMALL BOWEL 0 TSH REFLEX FREE T4 04/01/2021 TSH REFLEX FREE T4 12/28/2013 STOOL WBC 04/01/2021 Future Test Test Name Order Date COLONOSCOPY 03/27/2016 COLONOSCOPY 06/09/2023 Insurance Providers Payer Name Payer Address Payer Phone Subscriber Number Group Number Insured Name Patient Relationship to Insured Coverage Start Date Coverage End Date MEDICARE OF [place] [address] [place] [address] [id number] WADE TA Self - patient is the insured [facility] [address] [place] [phone] [id number] WADE TA Self - patient is the insured MEDICAL (GENERAL) HISTORY Medical History History ICD Code Colonoscopy 07/24/16, normal screening examination, ten-year followup recommended. Hypothyroidism Hyperlipidemia Back pain Surgical History Surgery Date(Month/Year) Laparoscopy bunionectomy hysterectomy bladder suspension cyst removal
--- OUTSIDE RECORDS SUMMARY | 2024-08-03 10:48 | XMS_ITS ---
Author Organization [facility] Address [address] [place] [address] Care Team Providers Care Contour Grinder Name Role Phone Bruce Hamilton Primary Care Provider Unavailab Lopez Lagunas Jr Unavailable REASON FOR VISIT brb Encounters Encounter Location Date Provider Diagnosis [facility] [address] [place] [phone] 03/27/2024 Lopez Sprague Jr Rectal bleeding K62.5 ASSESSMENTS Encounter Date Diagnosis Assessment Notes Treatment Notes Treatment Clinical Notes 03/27/2024 Rectal bleeding (ICD-10 - K62.5) PLAN OF TREATMENT Pending Test Test Name Order Date LIVER PROFILE 03/27/2024 LIPASE 03/27/2024 CBC w/o DIFF 03/27/2024
--- OUTSIDE RECORDS SUMMARY | 2024-08-03 10:48 | XMS_ITS ---
Author Organization [facility] Address [address] [place] [address] Care Team Providers Care Underwriting Analyst Name Role Phone Bruce Hamilton Primary Care Provider Unavailab Lopez Lagunas Jr Unavailable [phone] ALLERGIES No Known Allergies REASON FOR VISIT Patient presents today for diarrhea,ibs MEDICATIONS Medication SIG (Take, Route, Frequency, Duration) [...] as needed Orally Once a day Active SOCIAL HISTORY Sex Assigned At : Social [...] W/U Status Risk SNOMED Code Notes Problem RLQ abdominal pain (R10.31) Active confirmed 309087597 VITAL SIGNS BMI 20.88 kg/m2 06/14/2024 Blood pressure systolic 00 mm Hg 06/14/20 24 Blood pressure diastolic 00 mm Hg 024 Height 62.50 in 06/14/2024 Weight 116 lbs 06/14/2024 Encounters Encounter Location Date Provider Diagnosis [facility] [address] [place] [address] 06/14/2024 Lopez Sprague Jr RLQ abdominal pain R10.31 ; Gastroesophageal reflux disease without esophagitis K21.9 and Irritable bowel syndrome with diarrhea K58.0 ASSESSMENTS Encounter Date Diagnosis Assessment Notes Treatment Notes Treatment Clinical Notes 06/14/2024 RLQ abdominal pain (ICD-10 - R10.31) Irritable bowel syndrome material was printed 06/14/2024 Gastroesophageal ref lux disease without esophagitis (ICD-10 - K21.9) 06/14/2024 Irritable bowel syndrome with diarrhea (ICD-10 - K58.0) PLAN OF TREATMENT Treatment Notes Assessment Notes RLQ abdominal pain Irritable bowel synd john material was printed Pending Test Test Name Order Date CT ABD & PELVIS WITH CONTRAST 06/14/2024 Next Appt Details Follow Up: 1 Year, Reason:
[2024-08-03 13:33] LABS: Creatinine POC 0.9 mg/dL (0.5-1.4); GFR POC > 60
== END 2024-08-03 07:52 | disposition home or self-care (01) ==
LOC: HO.CT 07:51
PROVIDERS: PCP Family Medicine; Visit Provider Internal Medicine Gastroenterology
DX: R10.31 Right lower quadrant pain (principal)
CPT/HCPCS: 74177; 82565; Q9967

== ENCOUNTER → 2024-08-03 07:52 | Outpatient (BNV) | payer MEDICARE, OTHER, SELFPAY | PROVIDERS: PCP Family Medicine; Visit Provider Radiology Diagnostic Radiology | DX: K57.10 Diverticulosis of small intestine without perforation or abscess without bleeding (principal) | CPT/HCPCS: 74177 ==

== ENCOUNTER 2024-08-04 08:30 | Outpatient (AMB) | payer MEDICARE, OTHER, SELFPAY ==
--- NOTE | 2024-08-04 08:43 | A.OFFPC_ITS ---
Vital Signs 08/04/24 08:45 Height 5 ft 3 in Weight 124 lb 8 oz BMI 22.1 BP 144/67 H Blood Pressure Location Lt brachial Position Sitting Respiration 13 Pulse 70 Pulse Source Pulse Oximeter Temp 96.4 F L Temp Source Temporal Artery Scan Pulse Oximetry (%) 99 Oxygen Delivery Method Room Air Intake Visit Reasons: f/u chronic conditions Intake Note: follow up Dock Coordinator Required: No Allergies No Known Allergies Allergy (Verified 08/04/24 08:43) Medication List - Last Reconciled 08/04/24 by Bruce Hamilton MD ezetimibe 10 mg PO DAILY 90 days levothyroxine 25 mcg PO QAM lorazepam 0.5 mg PO DAILY PRN 30 days losartan 25 mg PO DAILY 90 days zolpidem 5 mg PO BEDTIME PRN 30 days Tobacco use date assessed: 11/04/23 Dental Screening Dental Screen Date: 11/04/23 HPI f/u chronic conditions HPI Details 68 y/o female presents to f/u chronic co nditions. Blood pressure today 144/67, 70p. She notes cough has resolved. HPI Comments History of Present Illness Details Documentation assistance for Bruce Hamilton MD, was provided by Phillip Mccurdy,? Manager Medical Device on 08/04/2024 at 9:01 AM NANDO. I, Dr. Hamilton, have read, observed, and verified documentation. ?? [facility] Medical History No pertinent past medical history Surgical History History of foot surgery History of laparoscopy History of bladder surgery History of hysterectomy Family History Father CVD (cardiovascular disease) Mother Diabetes mellitus HTN (hypertension) Social History (Updated 11/04/23 @ 08:42 by KIM Lee) Household Members: Spouse Both parents involved: No Caregiver staying overnight: No Housing: House Are you a primary personal carer to a significant other at home: No Do you presently have visiting nurse or other home services: No 75 years or older and lives alone: No Patient Tobacco Use Status: Former Tobacco user e-Cigarette/Vaping Use: Never Used Second Hand Smoke Exposure: No service: No Current occupational status: retired Current occupational exposures/hazards: No Cognitive needs: No Hearing needs: No Vision needs: No Questionnaire PHQ-9 Over the last 2 weeks, how often have you been bothered by any of the following problems? 23949 - PHQ-9 Billing: Patient declined-do not bill Source: Developed by Drs. Doug Naik, Aminta Manzanares, Kerwin Dobson and colleagues, with an educational eveline from [employer]. Thrive Questionnaire Date Thrive assessed: 04/19/24 PA-7 AMB Questionnaire PA-7 Date PA - 7 assessed: 04/19/24 Source: Developed by Drs. Doug Naik, Aminta Manzanares, Kerwin Dobson and colleagues, with an educational eveline from [employer]. Review of Systems Const Denies chills, Denies fatigue, Denies fever(s), Denies headache(s) and Denies weakness ENT Denies dizziness and Denies headache(s) Card Denies chest pain, Denies lightheadedness, Denies dyspnea and Denies other (Palpitations) Resp Denies cough, Denies dyspnea, Denies wheezing and Denies other ( shortness of breath) Musc Denies numbness and Denies tingling Neuro Denies dizziness, Denies headache(s), Denies numbness, Denies tingling, Denies paresthesias and Denies weakness Psych Denies anxiety and Denies depression Endo Denies fatigue Aller/Immun Denies wheezing Physical exam (Primary Care) Vital Signs: Last Vital Signs Temp 96.4 F L 08/04/24 08:45 Pulse 70 08/04/24 08:45 Resp 13 08/04/24 08:45 BP 144/67 H 08/04/24 08:45 Pulse Ox 99 08/04/24 08:45 Oxygen Delivery Method Room Air 08/04/24 08:45 BMI result Body Mass Index 22.1 Tobacco/Smoking Status: Tobacco use Status Tobacco use date assessed 11/04/23 08/04/24 08:43 Patient Tobacco Use Status Former Tobacco user 08/04/24 08:43 e-Cigarette/Vaping Use Never Used 08/04/24 08:43 Thrive Assessment: Date of Thrive Assessment Date Thrive assessed 04/19/24 08/04/24 08:43 Const General: no acute distress and well developed Nutritional Appearance: well nourished Orientation/consciousness: patient oriented x3 [facility] Head: Yes normocephalic and Yes atraumatic Eyes General: appearance normal, both eyes and all related structures Pupils: Equal, round and reactive pupils present EOM: EOMs intact bilaterally Resp Effort & Inspection: normal respiratory effort Auscultation: clear to auscultation bilaterally Cardio Rate: regular rate Rhythm: regular rhythm Heart sounds: S1 normal heart sound present, S2 normal heart sound present, no gallops, no murmurs and no rubs Neuro General: patient oriented x3 and gait normal Cranial nerves: Yes Equal, round and reactive pupils present Psych Affect: normal affect Coding Level of Care Code Est Pt Level 4 (55859) Diagnoses Essential hypertension I10 Cough R05.9 Encounter for screening mammogram for breast cancer Z12.31 Abdominal discomfort R10.9 Assessment & Plan Assessment & Plan (1) Essential hypertension: Code(s): I10 - Essential (primary) hypertension Category: Medical Plan: Blood?pressure?is?still?too?high. Start?losartan.??Goal?is?less?than?140/90 Will?continue?to?monitor (2) Cough: Code(s): R05.9 - Cough, unspecified Category: Medical Plan: This?has?resolved (3) Encounter for screening mammogram for breast cancer: Code(s): Z12.31 - Encounter for screening mammogram for malignant neoplasm of breast Category: Medical Plan: Recent?mammogram?showed?no?evidence?malignancy Will?continue?annual?screening (4) Abdominal discomfort: Code(s): R10.9 - Unspecified abdominal pain Category: Medical Plan: Patient?had?had?abdominal?discomfort?and?diarrhea?which?was?resolving?at?my?last ?visit. Patient?saw?her?gastroente rologist?who?performed?CT?abdomen?pelvis?which?is?rather?unremarkable. Follow- up?with?GI. Orders: Orders Free T4 (Free Thyroxine) Today E03.9 - Hypothyroidism, unspecified Comprehensive [place]. Panel Fast Today E03.9 - Hypothyroidism, unspecified, Z00.00 - Encounter for general adult medical examination without abnormal findings Triiodothyronine T3 Total Today E03.9 - Hypothyroidism, unspecified Thyroid Stimulating Hormone Today E03.9 - Hypothyroidism, unspecified Medications: New losartan 25 mg PO DAILY 90 days 90 tabs 3RF
[2024-08-04 08:45] VITALS: BP 144/67; PULSE 70; RESP 13; TEMP 35.8; O2SAT 99; BMI 22.1
== END 2024-08-04 09:02 | disposition home or self-care (01) ==
PROVIDERS: PCP Family Medicine; Visit Provider Family Medicine
DX: I10 Essential (primary) hypertension (principal); R05.9 Cough, unspecified; Z12.31 Encounter for screening mammogram for malignant neoplasm of breast; R10.9 Unspecified abdominal pain

== ENCOUNTER → 2024-08-04 08:30 | Outpatient (BNVA) | payer MEDICARE, OTHER, SELFPAY | PROVIDERS: PCP Family Medicine; Visit Provider Family Medicine | DX: I10 Essential (primary) hypertension (principal); R05.9 Cough, unspecified; R10.9 Unspecified abdominal pain | CPT/HCPCS: 99212 ==

== ENCOUNTER 2024-10-24 07:30 | Outpatient (REF) | payer MEDICARE, OTHER, SELFPAY ==
--- OUTSIDE RECORDS SUMMARY | 2024-10-24 07:32 | XMS_ITS | Patient Health Record ---
Author Organization [facility] Address [address] [place] [address] Care Team Providers Care Forklift Material Handler Name Role Phone Bruce Hamilton Primary Care Provider Unavailab Lopez Lagunas Jr Unavailable Allergies No Known Allergies Results Component Value Reference Range Notes CT abdomen pelvis w con Reviewed date:08/08/2024 04:42:21 PM Interpretation: Performing Lab: Notes/Report: [address] [address] [address] Scan Report Signed Patient: Wade Ta MR#: [id number] 1912 : 1955 Acct:[id number] Age/Sex: 68 / F ADM Date: 08/03/24 Loc: HO.CT Attending Dr: Lopez Sprague MD Ordering Physician: Lopez Sprague MD Date of Service: 08/03/24 Procedure(s): CT abdomen pelvis w IV con Accession Number(s): [id number] cc: Lopez Sprague MD; Bruce Hamilton MD Report Number: [id number]: Total DLP = 286.00 mGy-cm CLINICAL HISTORY: RLQ ABD PAIN CT abdomen and pelvis with contrast Comparison: None Findings: The lung bases are clear. A small hepatic cyst is noted. There is a small periampullary duodenum diverticulum. GI tract is otherwise unremarkable. There is no evidence of appendicitis. The patient is status post hysterectomy. No acute fracture. There is severe chronic degenerative disc disease at the L5-S1 level with significant spondylolisthesis. IMPRESSION: No acute findings. Small periampullary duodenum diverticulum. Other findings as above. This document has been electronically signed by: oDntae Smith MD on 08/03/2024 12:33:57 Dictated By: Dontae Smith MD Signed By: <Electronically signed by Dontae Smith MD in OV> 08/03/24 1235 DD/ 1233 TD/TT: 08/03/24 1233 Pulmonary Physician: [address] [address] [address] Scan Report Signed Patient: Candy Ta MR#: [id number] 1912 : 1955 Acct:[id number] Age/Sex: 68 / F ADM Date: 08/03/24 Loc: HO.CT Attending Dr: Valerio Sprague MD Ordering Physician: Lopez Sprague MD Date of Service: 08/03/24 Procedure(s): CT abd omen pelvis w IV con Accession Number(s): [id number] cc: Lopez Sprague MD; Bruce Hamilton MD Report Number: [id number]: Total DLP = 286.00 mGy-cm CLINICAL HISTORY: RL Q ABD PAIN CT abdomen and pelvi s with contrast Comparison: None Findings: The lung bases are clear. A small hepatic cyst is noted. There is a small periampullary duodenum diverticulum. GI tract is otherwise unremarkab le. There is no evidence of appendicitis. The patient is statu s post hysterectomy. No acute fracture. There is severe patient appointment coordinator lex degenerative disc disease at the L5-S1 level with significant spondylolisthesis. IMPRESSION: No acute findings. S mall periampullary duodenum diverticulum. Other findings as above. This document has be en electronically signed by: Dontae Smith MD on 08/03/2024 12:33:57 Dictated By: Dontae Smith MD Signed By: <Electronically signed by Dontae Smith MD in OV> 08/03/24 1235 DD/ 1233 TD/TT: 08/03/24 123 Pulmonary Physician: Creatinine GFR POC Reviewed date:08/04/2024 12:02:14 AM Interpretation: Performing Lab:[facility], [address] [place] [phone] Notes/Report: [id number] 0.86 >60 0952 HO.POHJ Creatinine POC 0.9 0.5-1.4 mg/dL GFR POC > 60 Chronic Kidney Disease: Estimated GFR < 60 mL/min/1.73m2 Severe Kidney Disease: Estimated GFR < 15 mL/min/1.73m2 Reason For Referral No Information Medications Medication SIG (Take, Route, Frequency, Duration) Notes [...] as needed Orally Once a day Active Immunizations Vaccine Route Administration Date Status Comme nts Influenza Unknown 09/07/2019 Refused Influenza Unknown 06/08/2022 Refused Influenza Unknown 06/09/2023 Refused Social History Alcohol Screen Question Answer Notes Did you [...] Never (0 point) Points 2 Interpretation Negative Problems Problem Type SNOMED Code ICD Code Onset Dates Problem Status W/U Status Risk Notes Problem 109011141 Colon cancer screening (Z12.11) Active confirmed Problem 29546669 Encounter for ot her preprocedural examination (Z01.818) Active confirmed Problem 467405066 Irritable bowel syndrome with diarrhea (K58.0) Active confirmed Problem 869788122 Gastroesophageal reflux disease without esophagitis (K21.9) Active confirmed Problem 679985065 RLQ abdominal pa in (R10.31) Active confirmed Vital Signs Blood pressure diastolic 00 mm Hg 06/14/2024 Height 62.50 in 06/14/2024 Blood pressure systolic 00 mm Hg 06/14/2024 Weight 116 lbs 06/14/2024 BMI 20.88 kg/m2 06/14/2024 Encounters Encounter Location Date Provider Diagnosis [facility] [address] [place] [address] 06/14/2024 Lopez Sprague Jr RLQ abdominal pain R10.31 ; Gastroesophageal reflux disease without esophagitis K21.9 and Irritable bowel syndrome with diarrhea K58.0 [facility] [address] [place] [address] 03/27/2024 Lopez Sprague Jr Rectal bleeding K62.5 [facility] [address] [place] [address] 04/06/2024 Lopez Sprague Jr [facility] [address] [place] [address] 08/08/2024 Lopez Sprague Jr Assessments Encounter Date Diagnosis (ICD Code) Assessment Notes Treatment Notes Treatment Clinical Notes Section Notes 06/14/2024 Gastroesophageal reflux disease without esophagitis (ICD-10 - K21.9) We discussed th e causes of right lower quadrant pain today, including appendicitis. With her recent diarrheal symptoms she may have had an exacerbation of her IBS. CT scanning will be obtained to rule out other causes for her symptoms. We discussed the procedure in detail today. We discussed irritable bowel syndrome today. We discussed gastroesophageal reflux disease today. 06/14/2024 RLQ abdominal pain (ICD-10 - R10.31) Irritable bowel syndrome material was printed We discussed the causes of right lower quadrant pain today, including appendicitis. With her recent diarrheal symptoms she may have had an exacerbation of her IBS. CT scanning will be obtained to rule out other causes for her symptoms. We discussed the procedure in detail today. We discussed irritable bowel syndrome today. We discussed gastroesophageal reflux disease today. 03/27/2024 Rectal bleeding (ICD-10 - K62.5) 06/14/2024 Irritable bowel syndrome with diarrhea (ICD-10 - K58.0) We discussed the causes of right lower quadrant pain today, including appendicitis. With her recent diarrheal symptoms she may have had an exacerbation of her IBS. CT scanning will be obtained to rule out other causes for her symptoms. We discussed the procedure in detail today. We discussed irritable bowel syndrome today. We discussed gastroesophageal reflux disease today. Plan Of Treatment Pending Test Test Name Order Date LIVER PROFILE 02/17/2012 LIVER PROFILE 03/27/2024 LIVER PROFILE 04/01/2021 LIPASE 04/01/2021 LIPASE 03/27/2024 CBC with MANUAL DIFFERENTIAL 02/17/2012 CBC w/o DIFF 03/27/2024 CBC w/o DIFF 04/01/2021 SED RATE (ESR) 02/17/2012 CLOSTRIDIUM DIFF TOXIN A&B (C DIFF) 02/02 STOOL WBC 02/17/2012 CELIAC PANEL #10 02/17/2012 ENDOMYSIAL IGA 02/17/2012 IgA 04/01/2021 TRANSGLUTAMINASE AB IGA 02/17/2012 TRANSGLUTAMINASE AB IGA 04/01/2021 TRANSGLUTAMINASE AB IGG 02/17/2012 CELIAC DISEASE ANTIBODY PANEL 12/28/2013 OVA & PARASITES (O&P) 04/01/2021 OVA & PARASITES (O&P) 02/17/2012 CULTURE, STOOL 02/17/2012 CT ABD & PELVIS [...] Date MEDICARE OF [place] [address] [place] [address] [phone] [id number] WADE TA Self - patient is the insured [facility] [address] [place] [phone] [id number] WADE TA Self - patient is the insured Medical (General) History Medical History History ICD Code Colonoscopy 07/24/16, normal screening examination, ten-year followup recommended. Hypothyroidism Hyperlipidemia Back pain Surgical History Surgery Date(Month/Year) Laparoscopy bunionectomy hysterectomy bladder suspension cyst removal
--- OUTSIDE RECORDS SUMMARY | 2024-10-24 07:32 | XMS_ITS ---
Author Organization [facility] Address [address] [place] [address] Care Team Providers Care Aerospace Manager Name Role Phone Bruce Hamilton Primary Care Provider Unavailab Lopez Lagunas Jr REASON FOR VISIT lab results Encounters Encounter Location Date Provider Diagnosis [facility] [address] [place] [phone] 04/06/2024 Lopez Sprague Jr Plan Of Treatment No Information Progress Notes * WADE TA ADOB: [birth year] (68 yo F)Acc No.[id number]:04/06/2024 Patient:?WADE TA :1955???Age:68 Y???Sex:Female Address:[address] [place] [address], [place] [address] * true * Date:? Generated for Emeryi juan r/[place]/eTransmitting on:?10/24/2024 07:32 AM EDT
--- OUTSIDE RECORDS SUMMARY | 2024-10-24 07:33 | XMS_ITS ---
Author Organization [facility] Address [address] [place] [phone] Care Team Providers Care Aircraft Servicer Name Role Phone Bruce Hamilton Primary Care Provider UnavailLopez Kang Jr Unavailable REASON FOR VISIT CT scan/ fyi update. Encounters Encounter Location Date Provider Diagnosis [facility] [address] [place] [phone] 08/08/2024 Lopez Sprague Jr Plan Of Treatment No Information Progress Notes * WADE TA ADOB: 5 (68 yo F)Acc No.[id number]:08/08/2024 Patient:?WADE TA :1955???Age:68 Y???Sex:Female Address:[address] [place] [address], [place] [address] * true * Date:? Generated for Printi juan r/Destin/eTransmitting on:?10/24/2024 07:32 AM EDT
--- OUTSIDE RECORDS SUMMARY | 2024-10-24 07:33 | XMS_ITS ---
Author Organization [facility] Address [address] [place] [address] Care Team Providers Care Prescription Clerk Lenses Name Role Phone Bruce Hamilton Primary Care Provider UnavailLopez Kang Jr Unavailable Allergies No Known Allergies REASON FOR VISIT Patient presents today for diarrhea,ibs Medications Medication SIG (Take, Route, Frequency, Duration) [...] as needed Orally Once a day Active Social History Alcohol Screen Question Answer Notes [...] Problem Status W/U Status Risk Notes Problem [id number] RLQ abdominal pain (R10.31) Active confirmed Vital Signs Blood pressure systolic 00 mm Hg 06/14/20 24 Blood pressure diastolic 00 mm Hg 024 Height 62.50 in 06/14/2024 Weight 116 lbs 06/14/2024 BMI 20.88 kg/m2 06/14/2024 Encounters Encounter Location Date Provider Diagnosis [facility] [address] [facility] [address] [place] [address] 06/14/2024 Lopez Sprague Jr RLQ abdominal pain R10.31 ; Gastroesophageal reflux disease without esophagitis K21.9 and Irritable bowel syndrome with diarrhea K58.0 Assessments Encounter Date Diagnosis (ICD Code) Assessment Notes Treatment Notes Treatment Clinical Notes Section Notes 06/14/2024 RLQ abdominal pain (ICD-10 - [...] We discussed gastroesophageal reflux disease today. 06/14/2024 Gastroesophageal reflux disease without esophagitis (ICD-10 [...] We discussed gastroesophageal reflux disease today. 06/14/2024 Irritable bowel syndrome with diarrhea (ICD-10 [...] gastroesophageal reflux disease today. Plan Of Treatment Treatment Notes Assessment Notes RLQ abdominal pain Irritable bowel synd john material was printed Pending Test Test Name Order Date CT ABD & PELVIS WITH CONTRAST 06/14/2024 Next Appt Details Follow Up: 1 Year, Reason: Progress Notes * WADE TA ADOB: (68 yo F)Acc No.[id number]:06/14/2024 Progress Notes Patient:?KEYON WADE Harrington Provider:?Lopez Sprague MD :1955???Age:68 Y???Sex:Female D ate:06/14/2024 Address:[address] [place] [address] JAYMIE, [place], [id number] Pcp:Bruce Hamilton Subjective: * Chief Complaints: * ???1. Patient presents today for diarrhea,ibs. * HPI: ???New symptom(s):? Wade is a pleasant 68-year-old woman seen today in followup of irritable bowel syndrome and gastroesophageal reflux disease. She was last seen in June of last year. Since that time she had an episode of diarrhea in April without specific precipitating factors. There were no ill contacts, travel, suspect food ingestions, and she had no fevers or chills. Symptoms resolved but she does complain of intermittent right lower quadrant pain. She is concerned about possible appendix problem. ?Reflux symptoms are under good control with diet. She has no dysphagia, hematemesis, or melena. Weight and appetite have been stable. * Medical History:?Colonoscopy 07/24/16, normal screening examination, ten-year followup recommended., Hypothyroidism, Hyperlipidemia, Back pain. * Surgical History:?Laparoscop y , bunionectomy , hysterectomy , bladder suspension , cyst removal . * Family History:?Father: dece ased, diagnosed with Heart disease.?Mother: , diagnosed with Diabetes, HTN (hypertension).? There is no family history of colorectal cancer. * Social History:?Tobacco Use:?Tobacco Use/Smoking?Are you a: former smoker , How long has it been since you last smoked?: > 10 years.?Drugs/Alcohol:?Alcohol Screen?Did you have a drink containing alcohol in the past year??Yes,?How often did you have a drink containing alcohol in the past year??2 to 4 times a month (2 points),?How many drinks did you have on a typical day when you were drinking in the past year??1 or 2 drinks (0 point),?How often did you have 6 or more drinks on one occasion in the past year??Never (0 point),?Points?2,?Interpretation?Negative.?Miscellaneous:?Marital status: Single. 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 * Medications:?Taking Levothyr oxine Sodium 25 MCG Tablet TK 1 T PO QAM OES Orally Once a day, Taking LORazepam 0.5 MG Tablet 1 tablet at bedtime as needed Orally prn, Taking Zolpidem Tartrate 5 MG Tablet 1 tablet at bedtime as needed Orally Once a day, Not-Taking/PRN Lomotil 2.5-0.025 MG Tablet 1 tablet as needed for diarrhea Orally Four times a day, Medication List reviewed and reconciled with the patient * Allergies:?N.K.D.A. Objective: * Vitals:?Wt: 116 lbs, Ht: 62. 50 in, BMI:20.88 Index, BP: 00/00 mm Hg. * Examination: ???General Examination: ???On examination today, she appears well. Skin is anicteric. Lungs are clear. Heart shows a regular rate and rhythm. Abdomen is soft without focal masses or tenderness. Extremities are without edema. Assessment: * Assessment: 1.?RLQ abdominal pain - R10. 31 (Primary)?2.?Gastroesophageal reflux disease without esophagitis - K21.9?3.?Irritable bowel syndrome with diarrhea - K58.0? We discussed the causes of r ight lower quadrant pain today, including appendicitis. With her recent diarrheal symptoms she may have had an exacerbation of her IBS. CT scanning will be obtained to rule out other causes for her symptoms. We discussed the procedure in detail today. We discussed irritable bowel syndrome today. We discussed gastroesophageal reflux disease today. Plan: * Treatment: * Notes: Irritable bowel syndrome material was printed?? * Procedure Codes:?3017F COLOR ECTAL CA SCREEN DOC REV, G9745 DOC RSN FOR NOT SCREEN/REC F/U HBP * Preventive Medicine:? ??Urinary Incontinence:?Urinary Incontinence?Assessment:?Present,?Plan of care documented:?Yes,?Type of plan of care:?Lifestyle interventions.? ??Screenings:?Fall Risk Screening?Fall Risk Assessment:?No falls in the past year,?Screening:?No falls in the past year,?Assessment:?Not performed, no reason specified,?Plan of Care:?Not documented, no reason specified.? * Follow Up:?1 Year * * Sign off status: Completed true * Provider:?Lopez Sprague MD Date:?1 08/15/2023 Generated for Dejah pete/[place]in/Jadeitting on:?10/24/2024 07:32 AM EDT History and Physical Notes * HPI (History of Present Illness) Category Sub-Category Detail Notes Category Not es New symptom(s) Wade is a pleasant 68-year-old woman seen today in followup of irritable bowel syndrome and gastroesophageal reflux disease. She was last seen in June of last year. Since that time she had an episode of diarrhea in April without specific precipitating factors. There were no ill contacts, travel, suspect food ingestions, and she had no fevers or chills. Symptoms resolved but she does complain of intermittent right lower quadrant pain. She is concerned about possible appendix problem. Reflux symptoms are under good control with diet. She has no dysphagia, hematemesis, or melena. Weight and appetite have been stable. Examination Category Sub-Category Detail Notes Category Not es General Examination On exami nation today, she appears well. Skin is anicteric. Lungs are clear. Heart shows a regular rate and rhythm. Abdomen is soft without focal masses or tenderness. Extremities are without edema.
[2024-10-24 12:01] LABS: Alanine Aminotransferase 23 U/L (0-31); Albumin Level 4.1 g/dL (3.5-5.0); Alkaline Phosphatase 66 U/L (39-117); Anion Gap 12 (12-20); Aspartate Amino Transferase 26 U/L (5-31); Bilirubin Total 1.1 mg/dL (0.0-1.0); Blood Urea Nitrogen 12 mg/dL (9-16); Calcium 9.1 mg/dL (8.4-10.2); Carbon Dioxide 26 mmol/L (22-29); Chloride 107 mmol/L (96-108); Estimated Glomerular Filt Rate > 60; Glucose Fasting 89 mg/dL (60-99); Glucose Random 89 mg/dL (60-115); Potassium 4.4 mmol/L (3.3-5.1); Sodium 141 mmol/L (135-145); Total Protein 6.7 g/dL (6.5-8.0)
[2024-10-24 12:26] LABS: Free T4 (Free Thyroxine) 0.89 ng/dL (0.71-1.85); Thyroid Stimulating Hormone 3.48 uIU/mL (0.32-4.0)
[2024-10-24 12:33] LABS: Creatinine Urine 36.88 mg/dL; Microalbum/Creatinine Ratio Ur 94.9 ug/mg cr (<30)
[2024-10-25 04:29] LABS: Triiodothyronine T3 Total 71 ng/dL (76-181)
== END 2024-10-24 07:31 | disposition home or self-care (01) ==
LOC: HO.WFDLDS 07:30
PROVIDERS: Visit Provider Family Medicine
DX: Z00.00 Encounter for general adult medical examination without abnormal findings (principal); I10 Essential (primary) hypertension; E03.9 Hypothyroidism, unspecified
CPT/HCPCS: 36415; 80053; 82043; 82570; 84439; 84443; 84480

== ENCOUNTER 2024-11-02 09:06 | Outpatient (AMB) | payer MEDICARE, OTHER, SELFPAY ==
--- NOTE | 2024-11-02 09:11 | A.OFFPC_ITS ---
Vital Signs 11/02/24 09:13 11/02/24 09:18 Height 5 ft 3 in Weight 129 lb 8 oz BMI 22.9 BP 150/70 H 148/78 H Blood Pressure Location Rt brachial Lt brachial Position Sitting Sitting Respiration 16 Pulse 71 Pulse Source Pulse Oximeter Temp 98.5 F Temp Source Oral Pulse Oximetry (%) 71 L Oxygen Delivery Method Room Air Intake Visit Reasons: f/u hypertension and hypothyroidism /ENT referral Intake Note: patient is scheduled to follow up for labs and htn and to discuss ent referral Transport Tank Technician Required: No Allergies No Known Allergies Allergy (Verified 11/02/24 09:12) Medication List - Last Reconciled 11/02/24 by Bruce Hamilton MD ezetimibe 10 mg PO DAILY 90 days levothyroxine 25 mcg PO QAM lorazepam 0.5 mg PO DAILY PRN 30 days losartan 25 mg PO DAILY 90 days zolpidem 5 mg PO BEDTIME PRN 30 days Tobacco use date assessed: 11/04/23 Dental Screening Dental Screen Date: 11/04/23 HPI f/u hypertension and hypothyroidism /ENT referral HPI Details 69 y/o female presents to f/u HTN, hypot hyroidism. Had started her on losartan last office visit. BP today 148/78, 71p. Labs drawn 10/24/24. Reviewed labs with pt. TSH 3.48 uIU/mL. Free T4 0.89. Total T3 71 ng/dL. She is on levothyroxine 25 mcg. Pt reports calf pain, cramping after walking a set distance. L worse than right. Has been hydrating herself and has been getting regular meals. She reports an ongoing cough with throat irritation. [facility] Medical History No pertinent past medical history Surgical History History of foot surgery History of laparoscopy History of bladder surgery History of hysterectomy Family History Father CVD (cardiovascular disease) Mother Diabetes mellitus HTN (hypertension) Social History (Updated 11/04/23 @ 08:42 by KIM Lee) Household Members: Spouse Both parents involved: No Caregiver staying overnight: No Housing: House Are you a primary progressive care nurse to a significant other at home: No Do you presently have visiting nurse or other home services: No 75 years or older and lives alone: No Patient Tobacco Use Status: Former Tobacco user e-Cigarette/Vaping Use: Never Used Second Hand Smoke Exposure: No service: No Current occupational status: retired Current occupational exposures/hazards: No Cognitive needs: No Hearing needs: No Vision needs: No Questionnaire Thrive Questionnaire Date Thrive assessed: 04/19/24 PA-7 AMB Questionnaire PA-7 Date PA - 7 assessed: 04/19/24 Source: Developed by Drs. Doug Naik, Aminta Manzanares, Kerwin Dobson and colleagues, with an educational eveline from [employer]. Review of Systems Const Denies chills, Denies fatigue, Denies fever(s), Denies headache(s) and Denies weakness ENT Denies dizziness and Denies headache(s) Card Denies dyspnea Resp Reports cough, Denies dyspnea and Denies wheezing Musc Denies numbness and Denies tingling Neuro Denies dizziness, Denies headache(s), Denies numbness, Denies tingling and Denies weakness Psych Denies anxiety and Denies depression Endo Denies fatigue Aller/Immun Denies wheezing Physical exam (Primary Care) Vital Signs: Last Vital Signs Temp 98.5 F 11/02/24 09:13 Pulse 71 11/02/24 09:13 Resp 16 11/02/24 09:13 BP 148/78 H 11/02/24 09:18 Pulse Ox 71 L 11/02/24 09:13 Oxygen Delivery Method Room Air 11/02/24 09:13 BMI result Body Mass Index 22.9 Tobacco/Smoking Status: Tobacco use Status Tobacco use date assessed 11/04/23 11/02/24 09:19 Patient Tobacco Use Status Former Tobacco user 11/02/24 09:19 e-Cigarette/Vaping Use Never Used 11/02/24 09:19 Thrive Assessment: Date of Thrive Assessment Date Thrive assessed 04/19/24 11/02/24 09:19 Const General: well developed; No acute distress Nutritional Appearance: well nourished Orientation/consciousness: patient oriented x3 HENMT Head: Yes normocephalic and Yes atraumatic Eyes General: appearance normal, both eyes and all related structures Pupils: Equal, round and reactive pupils present EOM: EOMs intact bilaterally Resp Effort & Inspection: normal respiratory effort Neuro General: patient oriented x3 and gait normal Cranial nerves: Yes Equal, round and reactive pupils present Extrem Other: DP pulse on R normal DP pulse on L slightly diminished. Psych Affect: normal affect Coding Level of Care Code Est Pt Level 3 (71334) Diagnoses Essential hypertension I10 Hypothyroidism E03.9 Cough R05.9 Calf pain M79.669 Muscle cramping R25.2 Claudication I73.9 Headache R51.9 Assessment & Plan Assessment & Plan (1) Essential hypertension: Code(s): I10 - Essential (primary) hypertension Category: Medical Plan: Blood?pressure?is?again?too?high.??Goal?is?less?than?140/90 Increasing?losartan?from?25-50?mg?daily Will?recheck?at?next?visit (2) Hypothyroidism: Code(s): E03.9 - Hypothyroidism, unspecified Category: Medical Plan: Taking?levothyroxine?25?mcg?daily?as?prescribed Will?recheck?as?her?T3?was?slightly?below?normal?r mariely?though?TSH?and?T4?are?within?normal?limits. (3) Cough: Code(s): R05.9 - Cough, unspecified Category: Medical Plan: Patient?notes?chronic?cough?with?throat?irritation.??She?would?like?a?referral?t o?ENT Referred (4) Calf pain: Code(s): M79.669 - Pain in unspecified lower leg Category: Medical Plan: She?has?complaints?of?calf?pain,?left?worse?than?right?after?walking?specific?di stance DP?pulse?on?right?foot?is?normal.??DP?pulse?on?left?foot?feels?slightly?diminish ed Checking?ANURAG?study (5) Muscle cramping: Code(s): R25.2 - Cramp and spasm Category: Medical Plan: As?above (6) Claudication: Code(s): I73.9 - Peripheral vascular disease, unspecified Category: Medical Plan: As?above (7) Headache: Code(s): R51.9 - Headache, unspecified Category: Medical Plan: Recurrent?brief?lateral?and?posterolateral?headaches Will?have?her?start?physical?therapy?for?headaches,?neck?and?shoulder?tension. If?not?improving?will?discuss?medications,?further?treatments?and?possible?refer ral?to?neurology. Orders: Orders PT Evaluation and Treatment Today R51.9 - Headache, unspecified US ANURAG complete Today I73.9 - Peripheral vascular disease, unspecified, M79.669 - Pain in unspecified lower leg Referrals Ear/Nose/Throat Referral J39.2 - Other diseases of pharynx, R05.9 - Cough, unspecified Medications: Changed From losartan 25 mg PO DAILY 90 days 90 tabs 3RF To losartan 50 mg PO DAILY 90 days 90 tabs 3RF
[2024-11-02 09:13] VITALS: BP 150/70; PULSE 71; RESP 16; TEMP 36.9; O2SAT 71; BMI 22.9
[2024-11-02 09:18] VITALS: BP 148/78
== END 2024-11-02 10:10 | disposition home or self-care (01) ==
LOC: HO.HMCFM 09:06
PROVIDERS: PCP Family Medicine; Visit Provider Family Medicine
DX: I10 Essential (primary) hypertension (principal); E03.9 Hypothyroidism, unspecified; R05.9 Cough, unspecified; M79.669 Pain in unspecified lower leg; R25.2 Cramp and spasm; I73.9 Peripheral vascular disease, unspecified; R51.9 Headache, unspecified

== ENCOUNTER → 2024-11-02 09:06 | Outpatient (BNVA) | payer MEDICARE, OTHER, SELFPAY | PROVIDERS: PCP Family Medicine; Visit Provider Family Medicine | DX: I10 Essential (primary) hypertension (principal); E03.9 Hypothyroidism, unspecified; R05.9 Cough, unspecified; R25.2 Cramp and spasm; I73.9 Peripheral vascular disease, unspecified; R51.9 Headache, unspecified | CPT/HCPCS: 99212 ==

== ENCOUNTER 2024-12-06 12:49 | Outpatient (REF) | payer MEDICARE, OTHER, SELFPAY ==
--- NOTE | ~2024-12-06 | US_ITS ---
CLINICAL HISTORY: M79.669 - Pain in unspecified lower leg ANKLE-BRACHIAL INDEX Comparison: None Findings: Right brachial artery 133 mmHg Right posterior tibial artery 95 mmHg Right dorsalis pedis artery 83 mmHg Left brachial artery 126 mmHg Left posterior tibial artery 106 mmHg Left dorsalis pedis artery 103 mmHg Impression: 1. Right ANURAG 0.71 consistent with [id number] peripheral artery disease. 2. Left ANURAG 0.80 consistent with [id number]-fzripzbo peripheral artery disease. This document has been electronically signed by: Elisha Harrington DO on 12/06/2024 14:49:58
--- OUTSIDE RECORDS SUMMARY | 2024-12-06 13:13 | XMS_ITS ---
Author Organization [facility] Address [address] [place] [phone] Care Team Providers Care Electric Operator Name Role Phone Bruce Hamilton Primary Care Provider Unavailab Lopez Lagunas Jr [phone] REASON FOR VISIT lab results Encounters Encounter Location Date Provider Diagnosis [facility] [address] [place] [phone] 04/06/2024 Lopez Sprague Jr Plan Of Treatment No Information Progress Notes * WADE TA ADOB: 5 (68 yo F)Acc No.[id number]:04/06/2024 Patient:?WADE TA :1955???Age:68 Y???Sex:Female Address:[address] [place] [address], [place] [address] * true * Date:? Generated for Emeryi juan r/[place]in/eTransmitting on:?12/06/2024 01:13 PM EDT
== END 2024-12-06 12:50 | disposition home or self-care (01) ==
LOC: HO.US 12:49
PROVIDERS: PCP Family Medicine; Visit Provider Family Medicine
DX: I73.9 Peripheral vascular disease, unspecified (principal); M79.661 Pain in right lower leg; M79.662 Pain in left lower leg
CPT/HCPCS: 93923

== ENCOUNTER → 2024-12-06 12:51 | Outpatient (BNV) | payer MEDICARE, OTHER, SELFPAY | PROVIDERS: PCP Family Medicine; Visit Provider Radiology Diagnostic Radiology | DX: I73.9 Peripheral vascular disease, unspecified (principal); M79.669 Pain in unspecified lower leg | CPT/HCPCS: 93923 ==

== ENCOUNTER 2024-12-14 09:26 | Outpatient (AMB) | payer MEDICARE, OTHER, SELFPAY ==
--- NOTE | 2024-12-14 09:38 | A.OFFVIS_ITS ---
Vital Signs 12/14/24 09:40 Height 5 ft 3 in Weight 129 lb BMI 22.8 Intake Visit Reasons: PVD U/S 12/06/24 Intake Note: STUDENT COUNSELLOR/ PCP referral for ARt US 12/06/24. Pt states she has LE cramping bilateral. Left LE worse than Right LE. Pt states she can walk about 3 blocks still but use to walk miles Motion Graphics Artist Required: No Accompanied by: Self / Same As Patient Allergies No Known Allergies Allergy (Verified 12/14/24 09:42) HPI HPI PVD U/S 12/06/24: Details: The patient is a 69-year-old female presenting with evaluation of leg discomfort during ambulation. The patient experiences a sensation of pulling in the legs after walking approximately three to four blocks, which resolves with rest but recurs upon resumption of walking. This issue has persisted for a short period, with no specific onset date mentioned. There are no significant knee or back pain issues, although occasional mild knee discomfort occurs with stair use. The left leg is more affected than the right. A history of smoking is noted, with cessation approximately 30 years prior. She denies diabetes and reports no leg injuries. She now presents to us for vascular evaluation [facility] Medical History No pertinent past medical history Surgical History History of foot surgery History of laparoscopy History of bladder surgery History of hysterectomy Family History Father CVD (cardiovascular disease) Mother Diabetes mellitus HTN (hypertension) Social History Household Members: Spouse Both parents involved: No Caregiver staying overnight: No Housing: House Are you a primary health care marketing manager to a significant other at home: No Do you presently have visiting nurse or other home services: No 75 years or older and lives alone: No Patient Tobacco Use Status: Former Tobacco user e-Cigarette/Vaping Use: Never Used Second Hand Smoke Exposure: No service: No Current occupational status: retired Current occupational exposures/hazards: No Cognitive needs: No Hearing needs: No Vision needs: No Review of Systems Const All systems reviewed & are unremarkable except as noted in HPI and below Reports no additional complaints ENT Reports Normal hearing present Card Denies chest pain, Denies chest pain at rest, Denies chest pain with activity and Denies pedal edema Resp Denies cough GI Denies abdominal pain Musc Denies abnormal gait, Denies muscle cramps and Denies radiating pain into limb Skin/Breast Denies skin ulcer and Denies wounds Neuro Reports Normal hearing present and Denies abnormal gait Psych Reports no additional complaints Physical Exam Vital Signs: BMI result Body Mass Index 22.8 Const General: cooperative, healthy appearing and comfortable Orientation/consciousness: oriented to person, oriented to place and oriented to time HEENT Head: Yes normal to inspection Neck Neck: Yes normal visual inspection Carotids: no bruits Chest Chest palpation & inspection: normal inspection of the chest Resp Effort & Inspection: normal respiratory effort and able to speak in complete sentences Auscultation: clear to auscultation bilaterally, no crackles, no rales, no rhonchi and no wheezes Cardio Other: Bilateral palpable dorsalis pedis pulses Rate: regular rate Rhythm: regular rhythm Heart sounds: S1 normal heart sound present and S2 normal heart sound present Bruits: no carotid bruits Peripheral pulses: Peripheral pulses 2+ throughout GI Inspection: Yes normal to inspection Skin Wounds: no wounds Hair: normal Neuro General: oriented to person, oriented to place and oriented to time Cranial nerves: Yes CN's II-XII intact bilaterally and Yes Normal hearing present Cognition (Neuro): normal cognition Motor exam (neuro): 5/5 motor strength present throughout Extrem Other: venous exam: No significant superficial varicosities or spider telangiectasias, minimal edema General: No clubbing, No cyanosis and No edema Psych Appearance: grossly normal Mental Status: mental status grossly normal Speech and movement: Normal speech and movement present Results Reviewed Results Reviewed: Noninvasive arterial testing dated 12/06/2024 demonstrates ANURAG on the right of 0.71 and on the left of 0.80 but on direct waveforms appears to have a nice triphasic flow. Assessment & Plan Assessment & Plan (1) Peripheral vascular disease: Code(s): I73.9 - Peripheral vascular disease, unspecified Category: Medical Plan: At the current time I do not believe she has any significant peripheral vascular disease. Her noninvasive testing may be artifactually decreased. At the current time I am able to appreciate palpable bilateral dorsalis pedis pulses. In addition she is a nonsmoker nondiabetic. I do think this may be more musculoskeletal in nature. We did discuss routine conservative measures including the importance of ambulation. She will follow up with us on an as- needed basis. Thank you for allowing us to assist in her care. Coding Level of Care Code New Pt Level 4 (53605) Complex EM visit Add On G2211 Diagnoses Peripheral vascular disease I73.9
[2024-12-14 09:40] VITALS: BMI 22.8
--- OUTSIDE RECORDS SUMMARY | 2024-12-14 10:16 | XMS_ITS ---
Author Organization [facility] Address [address] [place] [phone] Care Team Providers Care Automation Architect Name Role Phone Bruce Hamilton Primary Care Provider Unavailab Lopez Lagunas Jr [phone] REASON FOR VISIT lab results Encounters Encounter Location Date Provider Diagnosis [facility] [address] [place] [phone] 04/06/2024 Lopez Sprague Jr Plan Of Treatment No Information Progress Notes * WADE TA ADOB: 5 (68 yo F)Acc No.[id number]:04/06/2024 Patient:?WADE TA :1955???Age:68 Y???Sex:Female Address:[address] [place] [address], [place] [address] * true * Date:? Generated for Emeryi juan r/[place]/eTransmitting on:?12/14/2024 10:16 AM EDT
== END 2024-12-14 09:59 | disposition home or self-care (01) ==
LOC: HO.HVS 09:26
PROVIDERS: PCP Family Medicine; Visit Provider Surgery Vascular Surgery
DX: I73.9 Peripheral vascular disease, unspecified (principal)
CPT/HCPCS: 99204; G2211

== ENCOUNTER → 2024-12-14 09:26 | Outpatient (BNVA) | payer MEDICARE, OTHER, SELFPAY | PROVIDERS: PCP Family Medicine; Visit Provider Surgery Vascular Surgery | DX: I73.9 Peripheral vascular disease, unspecified (principal) | CPT/HCPCS: 99202 ==

== ENCOUNTER 2024-12-27 07:31 | Outpatient (REF) | payer MEDICARE, OTHER, SELFPAY ==
--- OUTSIDE RECORDS SUMMARY | 2024-12-27 07:34 | XMS_ITS | Patient Health Record ---
Author Organization [facility] Address [address] [place] [address] Care Team Providers Care Hand Tapper Name Role Phone Bruce Hamilton Primary Care Provider Unavailab Lopez Lagunas Jr Unavailable [phone] Allergies No Known Allergies Results Component Value Reference Range Notes CT abdomen pelvis w con Reviewed date:08/08/2024 04:42:21 PM Interpretation: Performing Lab: Notes/Report: [address] [address] [address] Scan Report Signed Patient: Wade Ta MR#: [id number] 1912 : 1955 Acct:[id number] Age/Sex: 68 / F ADM Date: 08/03/24 Loc: HO.CT Attending Dr: Lopez Sprague MD Ordering Physician: Lopez Sprague MD Date of Service: 08/03/24 Procedure(s): CT abdomen pelvis w IV con Accession Number(s): [id number] cc: Lopez Sprague MD; Bruce Hamilton MD Report Number: [id number]: Total DLP = 286.00 mGy-cm CLINICAL HISTORY: [...] This document has been electronically signed by: Dontae Smith MD on 08/03/2024 12:33:57 Dictated By: Dontae Smith MD Signed By: <Electronically signed by Dontae Smith MD in OV> 08/03/24 1235 DD/ 1233 TD/TT: 08/03/24 1233 Time Buyer: Creatinine GFR POC Reviewed date:08/04/2024 12:02:14 AM Interpretation: Performing Lab:[facility], [address] [place] [phone] Notes/Report: [id number] 0.86 >60 0952 HO.POHJ Creatinine POC 0.9 [...] Problem Status W/U Status Risk Notes Problem 975224542 Colon cancer screening (Z12.11) Active confirmed Problem 32800676 Encounter for ot her preprocedural examination (Z01.818) Active confirmed Problem 377505155 Irritable bowel syndrome with diarrhea (K58.0) Active confirmed Problem 887665527 Gastroesophageal reflux disease without esophagitis (K21.9) Active confirmed Problem 323430538 RLQ abdominal pa in (R10.31) Active confirmed Vital Signs Blood pressure diastolic 00 mm Hg 06/14/2024 Height 62.50 in 06/14/2024 Blood pressure systolic 00 mm Hg 06/14/2024 Weight 116 lbs 06/14/2024 BMI 20.88 kg/m2 06/14/2024 Encounters Encounter Location Date Provider Diagnosis [facility] [address] [place] [phone] 06/14/2024 Lopez Sprague Jr RLQ abdominal pain R10.31 ; Gastroesophageal reflux disease without esophagitis K21.9 and Irritable bowel syndrome with diarrhea K58.0 [facility] [address] [place] [phone] 03/27/2024 Lopez Sprague Jr Rectal bleeding K62.5 [facility] [address] [place] [phone] 04/06/2024 Lopez Sprague Jr [facility] [address] [place] [phone] 08/08/2024 Lopez Sprague Jr Assessments Encounter Date [...] LIVER PROFILE 03/27/2024 LIVER PROFILE 04/01/2021 LIPASE 03/27/2024 LIPASE 04/01/2021 CBC with MANUAL DIFFERENTIAL 02/17/2012 CBC w/o DIFF 03/27/2024 CBC w/o DIFF 04/01/2021 SED RATE (ESR) 02/17/2012 CLOSTRIDIUM DIFF TOXIN A&B (C DIFF) 02/02 STOOL WBC 02/17/2012 CELIAC PANEL #10 02/17/2012 ENDOMYSIAL IGA 02/17/2012 IgA 04/01/2021 TRANSGLUTAMINASE AB IGA 04/01/2021 TRANSGLUTAMINASE AB IGA 02/17/2012 TRANSGLUTAMINASE AB IGG 02/17/2012 CELIAC DISEASE ANTIBODY PANEL 12/28/2013 OVA & PARASITES (O&P) 02/17/2012 OVA & PARASITES (O&P) 04/01/2021 CULTURE, STOOL 02/17/2012 CT ABD & PELVIS WITH CONTRAST 06/14/2024 XR GI HIGH DENSITY SMALL BOWEL 0 TSH REFLEX FREE T4 12/28/2013 TSH REFLEX FREE T4 04/01/2021 STOOL WBC 04/01/2021 Future Test Test Name Order Date COLONOSCOPY 03/27/2016 COLONOSCOPY 06/09/2023 Insurance Providers Payer Name Payer Address Payer Phone Subscriber Number Group Number Insured Name Patient Relationship to Insured Coverage Start Date Coverage End Date MEDICARE OF [employer] [address] [id number] WADE TA Self - patient is the insured [facility] [address] [place] [address] [id number] WADE TA Self - patient is the insured Medical (General) History Medical History History ICD Code Colonoscopy 07/24/16, normal screening examination, ten-year followup recommended. Hypothyroidism Hyperlipidemia Back pain Surgical History Surgery Date(Month/Year) Laparoscopy bunionectomy hysterectomy bladder suspension cyst removal
[2024-12-27 11:56] LABS: Alanine Aminotransferase 22 U/L (0-31); Albumin Level 4.2 g/dL (3.5-5.0); Alkaline Phosphatase 59 U/L (39-117); Anion Gap 12 (12-20); Aspartate Amino Transferase 21 U/L (5-31); Blood Urea Nitrogen 11 mg/dL (9-16); Carbon Dioxide 23 mmol/L (22-29); Chloride 107 mmol/L (96-108); Estimated Glomerular Filt Rate > 60; Glucose Random 99 mg/dL (60-115); Potassium 4.2 mmol/L (3.3-5.1); Sodium 138 mmol/L (135-145); Total Protein 6.7 g/dL (6.5-8.0)
[2024-12-27 11:58] LABS: Free T4 (Free Thyroxine) 0.98 ng/dL (0.71-1.85); Thyroid Stimulating Hormone 3.53 uIU/mL (0.32-4.0)
[2024-12-28 06:28] LABS: Triiodothyronine T3 Total 69 ng/dL (76-181)
== END 2024-12-27 07:32 | disposition home or self-care (01) ==
LOC: HO.WFDLDS 07:31
PROVIDERS: Visit Provider Family Medicine
DX: E03.9 Hypothyroidism, unspecified (principal); R25.2 Cramp and spasm
CPT/HCPCS: 36415; 80053; 84439; 84443; 84480

== ENCOUNTER 2025-01-02 09:27 | Outpatient (AMB) | payer MEDICARE, OTHER, SELFPAY ==
--- OUTSIDE RECORDS SUMMARY | 2025-01-02 10:07 | XMS_ITS | Patient Health Record ---
Author Organization [facility] Address [address] [place] [address] Care Team Providers Care Erp Technical Lead Name Role Phone Bruce Hamilton Primary Care Provider Unavailab Lopez Lagunas Jr Unavailable Allergies No Known Allergies Results Component Value Reference Range Notes CT abdomen pelvis w con Reviewed date:08/08/2024 04:42:21 PM Interpretation: Performing Lab: Notes/Report: [address] [address] [address] Scan Report Signed Patient: Wade Ta MR#: [id number] 1912 : 1955 Acct:[id number] Age/Sex: 68 / F ADM Date: 08/03/24 Loc: HO.CT Attending Dr: Lopez Sprague MD Ordering Physician: Lopez Sprague MD Date of Service: 08/03/24 Procedure(s): CT abdomen pelvis w IV con Accession Number(s): [id number] cc: Lopez Sprague MD; Bruce Hamilton MD Report Number: [id number]: Total DLP = 286.00 mGy-cm CLINICAL HISTORY: [...] 08/03/24 1235 DD/ 1233 TD/TT: 08/03/24 1233 Pretzel Cooker: Creatinine GFR POC Reviewed date:08/04/2024 12:02:14 AM Interpretation: Performing Lab:[facility], [address] [place] [phone] Notes/Report: [id number] 0.86 >60 0952 HO.POHJ Creatinine POC 0.9 [...] Problem Status W/U Status Risk Notes Problem 653496839 Colon cancer screening (Z12.11) Active confirmed Problem 25985790 Encounter for ot her preprocedural examination (Z01.818) Active confirmed Problem 695179529 Irritable bowel syndrome with diarrhea (K58.0) Active confirmed Problem 475790382 Gastroesophageal reflux disease without esophagitis (K21.9) Active confirmed Problem 276067558 RLQ abdominal pa in (R10.31) Active confirmed Vital Signs Blood pressure diastolic 00 mm Hg 06/14/2024 Height 62.50 in 06/14/2024 Blood pressure systolic 00 mm Hg 06/14/2024 Weight 116 lbs 06/14/2024 BMI 20.88 kg/m2 06/14/2024 Encounters Encounter Location Date Provider Diagnosis [facility] [address] [place] [phone] 06/14/2024 Lopez Sprague Jr RLQ abdominal pain R10.31 ; Gastroesophageal reflux disease without esophagitis K21.9 and Irritable bowel syndrome with diarrhea K58.0 [facility] [address] [place] [phone] 03/27/2024 Lopez Sprague Jr Rectal bleeding K62.5 [facility] [address] [place] [phone] 04/06/2024 Lopez Sprague Jr [facility] [address] [place] [phone] 08/08/2024 Lopez Sprague Jr Assessments Encounter Date [...] OF [employer] [address] [id number] WADE TA Self - patient is the insured [facility] [address] [place] [phone] [phone] [id number] WADE TA Self - patient is the insured Medical (General) History Medical History History ICD Code Colonoscopy 07/24/16, normal screening examination, ten-year followup recommended. Hypothyroidism Hyperlipidemia Back pain Surgical History Surgery Date(Month/Year) Laparoscopy bunionectomy hysterectomy bladder suspension cyst removal
--- NOTE | 2025-01-02 10:13 | MHC.PC.OV ---
Vital Signs 01/02/25 10:14 Height 5 ft 3 in Weight 132 lb 6 oz BMI 23.4 BP 110/70 Blood Pressure Location Rt brachial Position Sitting Respiration 16 Pulse 73 Pulse Source Pulse Oximeter Temp 98.6 F Temp Source Oral Pulse Oximetry (%) 99 Oxygen Delivery Method Room Air Intake Visit Reasons: f/u hypothyroidism Intake Note: patient is scheduled for lab review Aurist Required: No Allergies No Known Allergies Allergy (Verified 01/02/25 10:13) Medication List - Last Reconciled 01/02/25 by Bruce Hamilton MD ezetimibe 10 mg PO DAILY 90 days levothyroxine 25 mcg PO QAM lorazepam 0.5 mg PO DAILY PRN 30 days losartan 50 mg PO DAILY 90 days zolpidem 5 mg PO BEDTIME PRN 30 days Tobacco use date assessed: 11/04/23 Dental Screening Dental Screen Date: 11/04/23 HPI f/u hypothyroidism HPI Details 69 y/o female presents to f/u hypothyroidism, labs. Labs drawn 12/27/24. Reviewed labs with pt. TSH 3.53 uIU/mL. Free T4 0.98 ng/dL. Total T3 69 ng/dL. She is on levothyroxine 25mcg. Blood pressure today 110/70, 73p. She is on losartan 50mg daily. Pt notes lorazepam and zollpidem has been helping for her anxiety. [facility] Medical History No pertinent past medical history Surgical History History of foot surgery History of laparoscopy History of bladder surgery History of hysterectomy Family History Father CVD (cardiovascular disease) Mother Diabetes mellitus HTN (hypertension) Social History Household Members: Spouse Both parents involved: No Caregiver staying overnight: No Housing: House Are you a primary healthcare facility administrator to a significant other at home: No Do you presently have visiting nurse or other home services: No 75 years or older and lives alone: No Patient Tobacco Use Status: Former Tobacco user e-Cigarette/Vaping Use: Never Used Second Hand Smoke Exposure: No service: No Current occupational status: retired Current occupational exposures/hazards: No Cognitive needs: No Hearing needs: No Vision needs: No Questionnaire PHQ-9 Over the last 2 weeks, how often have you been bothered by any of the following problems? 1. Little interest or pleasure in doing things: not at all 2. Feeling down, depressed, or hopeless: not at all 3. Trouble falling or staying asleep, or sleeping too much: not at all 4. Feeling tired or having little energy: not at all 5. Poor appetite or overeating: not at all 6. Feeling bad about yourself - or that you are a failure or have let yourself or your family down: not at all 7. Trouble concentrating on things, such as reading the newspaper or watching television: not at all 8. Moving or speaking so slowly that other people could have noticed. Or the opposite - being so fidgety or restless that you have been moving around a lot more than usual: not at all 9. Thoughts that you would be better off or of hurting yourself in some way: not at all Total score: 0 Source: Developed by Drs. Doug Naik, Aminta Manzanares, Kerwin Dobson and colleagues, with an educational eveline from [employer]. Thrive Questionnaire Date Thrive assessed: 04/19/24 I am a: Patient What is your living situation today?: I have a steady place to live Within the past 12 months, did the food you bought not last and you didn't have the money to get more?: Never true Within the past 12 months, did you worry whether your food would run out before you got money to buy more?: I choose not to answer this question Do you have trouble paying for medicines?: No Do you have trouble getting transportation to medical appointments?: No Do you have trouble paying your heating and electricity bill?: No Do you have trouble taking care of your child, family member or friend?: No Do you have trouble with day-to-day activities such as bathing, preparing meals, shopping, managing finances, etc.?: No Are you currently unemployed and looking for a job?: No Are you interested in more education?: No Please select the resources that you would like help with: None Currently or been in a relationship where the following occur: I choose not to answer THRIVE Score: 0 AUDIT C Alcohol Use Questionnaire (AUDIT-C) 1. How often do you have a drink containing alcohol?: Never Total Score: 0 PA-7 AMB Questionnaire PA-7 Date PA - 7 assessed: 04/19/24 Feeling nervous, anxious, or on edge: 0 = Not at all Not being able to stop or control worryin = Not at all Worrying too much about different things: 0 = Not at all Trouble relaxin = Not at all Being so restless that it is hard to sit still: 0 = Not at all Becoming easily annoyed or irritable: 0 = Not at all Feeling afraid as if something awful might happen: 0 = Not at all Total PA-7 score (0-4 normal; 5-9 mild; 10-14 moderate; 15-21 severe): 0 Source: Developed by Drs. Doug Naik, Aminta Manzanares, Kerwin Dobson and colleagues, with an educational eveline from [employer]. Review of Systems Const Denies chills, Denies fatigue, Denies fever(s), Denies headache(s) and Denies weakness ENT Denies dizziness and Denies headache(s) Card Denies dyspnea Resp Denies cough, Denies dyspnea, Denies wheezing and Denies other (shortness of breath) Musc Denies numbness and Denies tingling Neuro Denies dizziness, Denies headache(s), Denies numbness, Denies tingling and Denies weakness Psych Denies anxiety and Denies depression Endo Denies fatigue Aller/Immun Denies wheezing Physical exam (Primary Care) Vital Signs: Last Vital Signs Temp 98.6 F 01/02/25 10:14 Pulse 73 01/02/25 10:14 Resp 16 01/02/25 10:14 BP 110/70 01/02/25 10:14 Pulse Ox 99 01/02/25 10:14 Oxygen Delivery Method Room Air 01/02/25 10:14 BMI result Body Mass Index 23.4 Tobacco/Smoking Status: Tobacco use Status Tobacco use date assessed 11/04/23 01/02/25 10:25 Patient Tobacco Use Status Former Tobacco user 01/02/25 10:25 e-Cigarette/Vaping Use Never Used 01/02/25 10:25 PHQ-9: PHQ-9 Score PHQ-9: Total score 0 01/02/25 10:25 Thrive Assessment: Date of Thrive Assessment Date Thrive assessed 04/19/24 01/02/25 10:25 Currently or been in a relationship where the following occur: I choose not to answer Const General: well developed; No acute distress Nutritional Appearance: well nourished Orientation/consciousness: patient oriented x3 HENMT Head: Yes normocephalic and Yes atraumatic Eyes General: appearance normal, both eyes and all related structures Pupils: Equal, round and reactive pupils present EOM: EOMs intact bilaterally Resp Effort & Inspection: normal respiratory effort Auscultation: clear to auscultation bilaterally Cardio Rate: regular rate Rhythm: regular rhythm Heart sounds: S1 normal heart sound present, S2 normal heart sound present, no gallops, no murmurs and no rubs Neuro General: patient oriented x3 and gait normal Cranial nerves: Yes Equal, round and reactive pupils present Psych Affect: normal affect Coding Level of Care Code Est Pt Level 4 (44884) Diagnoses Hypothyroidism E03.9 Essential hypertension I10 Anxiety F41.9 Assessment & Plan Assessment & Plan (1) Hypothyroidism: Code(s): E03.9 - Hypothyroidism, unspecified Category: Medical Plan: T3?mildly?below?normal?range?but?TSH?and?T4?within?normal?range Will?continue?current?medication?regimen Will?continue?to?follow?thyroid?hormone?levels (2) Essential hypertension: Code(s): I10 - Essential (primary) hypertension Category: Medical Plan: Blood?pressure?is?well?controlled.??Goal?is?less?than?140/90 Continue?current?medication (3) Anxiety: Code(s): F41.9 - Anxiety disorder, unspecified Category: Medical Plan: Patient?is?taking?lorazepam?and?zolpidem?without?problems.??These?medications?are?helping?her?with?anxiety?and?sleep Will?continue?these. Orders: Orders Free T4 (Free Thyroxine) Today E03.9 - Hypothyroidism, unspecified Thyroid Stimulating Hormone Today E03.9 - Hypothyroidism, unspecified Triiodothyronine T3 Total Today E03.9 - Hypothyroidism, unspecified Comprehensive [place]. Panel Fast Today E78.5 - Hyperlipidemia, unspecified, Z00.00 - Encounter for general adult medical examination without abnormal findings Lipid Panel Today E78.5 - Hyperlipidemia, unspecified, Z00.00 - Encounter for general adult medical examination without abnormal findings Medications: Refilled lorazepam [employer] verified. Partial refill upon request. 0.5 mg PO DAILY PRN 30 tabs 0RF anxiety 30 days losartan 50 mg PO DAILY 90 tabs 3RF 90 days levothyroxine 25 mcg PO QAM 90 tabs 1RF ezetimibe 10 mg PO DAILY 90 tabs 0RF 90 days zolpidem [employer] verified. Partial refill upon request. 5 mg PO BEDTIME PRN 30 tabs 0RF insomnia 30 days
[2025-01-02 10:14] VITALS: BP 110/70; PULSE 73; RESP 16; TEMP 37; O2SAT 99; BMI 23.4
== END 2025-01-02 11:01 | disposition home or self-care (01) ==
LOC: HO.HMCFM 09:28
PROVIDERS: PCP Family Medicine; Visit Provider Family Medicine
DX: E03.9 Hypothyroidism, unspecified (principal); I10 Essential (primary) hypertension; F41.9 Anxiety disorder, unspecified

== ENCOUNTER → 2025-01-02 09:27 | Outpatient (BNVA) | payer MEDICARE, OTHER, SELFPAY | PROVIDERS: PCP Family Medicine; Visit Provider Family Medicine | DX: E03.9 Hypothyroidism, unspecified (principal); F41.9 Anxiety disorder, unspecified; I10 Essential (primary) hypertension | CPT/HCPCS: 99212 ==

== ENCOUNTER 2025-05-01 07:32 | Outpatient (REF) | payer MEDICARE, OTHER, SELFPAY ==
--- OUTSIDE RECORDS SUMMARY | 2025-05-01 07:35 | XMS_ITS | Patient Health Record ---
Author Organization [facility] Address [address] [place] [address] Care Team Providers Care Contact Center Manager Name Role Phone Bruce Hamilton Primary Care Provider Unavailab Lopez Lagunas Jr Unavailable Allergies No Known Allergies Results Component Value Reference Range Notes CT abdomen pelvis w con Reviewed date:08/08/2024 04:42:21 PM Interpretation: Performing Lab: Notes/Report: [address] [address] [address] Scan Report Signed Patient: Wade Ta MR#: [id number] 1912 : 1955 Acct:[id number] Age/Sex: 68 / F ADM Date: 08/03/24 Loc: HO.CT Attending Dr: Lopez Sprague MD Ordering Physician: Lopez Sprague MD Date of Service: 08/03/24 Procedure(s): CT abdomen pelvis w IV con Accession Number(s): [id number] cc: Lopez Sprague MD; Bruce Hamilton MD Report Number: [id number]: Total DLP = 286.00 mGy-cm CLINICAL HISTORY: [...] 08/03/24 1235 DD/ 1233 TD/TT: 08/03/24 1233 Photo Optics Technician: Creatinine GFR POC Reviewed date:08/04/2024 12:02:14 AM Interpretation: Performing Lab:[facility], [address] [place] [phone] Notes/Report: [id number] 0.86 >60 0952 HO.POHJ Creatinine POC 0.9 [...] needed for diarrhea Orally Four times a day; Duration: 30 days 04/01/2021 Not-Taking Zolpidem Tartrate 5 [...] Problem Status W/U Status Risk Notes Problem Colon cancer screening (940284284) Colon cancer screening (Z12.11) Active confirmed Problem Pre-procedure evaluation check (249680403) Encounter for other preprocedural examination (Z01.818) Active confirmed Problem Irritable bowel syndrome with diarrhea (470464059) Irritable bowel syndrome with diarrhea (K58.0) Active confirmed Problem Gastroesophageal reflux disease without esophagitis (523316542) Gastroesophageal reflux disease without esophagitis (K21.9) Active confirmed Problem Right lower quadrant pain (351981846) RLQ abdominal pain (R10.31) Active confirmed Vital Signs Blood pressure diastolic 00 mm Hg 06/14/2024 Height 62.50 in 06/14/2024 Blood pressure systolic 00 mm Hg 06/14/2024 Weight 116 lbs 06/14/2024 BMI 20.88 kg/m2 06/14/2024 Encounters Encounter Location Date Provider Diagnosis [facility] [address] [place] [phone] 06/14/2024 Lopez Sprague Jr RLQ abdominal pain R10.31 ; Gastroesophageal reflux disease without esophagitis K21.9 and Irritable bowel syndrome with diarrhea K58.0 [facility] [address] [place] [phone] 08/08/2024 Lopez Sprague Jr Assessments Encounter Date [...] Date MEDICARE OF [place] [address] [place] [address] [id number] WADE TA Self - patient is the insured [facility] [address] [place] [address] [id number] WADE TA Self - patient is the insured Medical (General) History Medical History History ICD Code Colonoscopy 07/24/16, normal screening examination, ten-year followup recommended. Hypothyroidism Hyperlipidemia Back pain Surgical History Surgery Date(Month/Year) Laparoscopy bunionectomy hysterectomy bladder suspension cyst removal
[2025-05-01 12:05] LABS: Alanine Aminotransferase 21 U/L (0-31); Albumin Level 4.5 g/dL (3.5-5.0); Alkaline Phosphatase 64 U/L (39-117); Anion Gap 11 (12-20); Aspartate Amino Transferase 24 U/L (5-31); Blood Urea Nitrogen 13 mg/dL (9-16); Calcium 9.4 mg/dL (8.4-10.2); Carbon Dioxide 26 mmol/L (22-29); Chloride 109 mmol/L (96-108); Cholesterol 245 mg/dL (<200); Estimated Glomerular Filt Rate > 60; HDL Cholesterol 66 mg/dL (>40); Potassium 3.9 mmol/L (3.3-5.1); Sodium 142 mmol/L (135-145); Total Protein 7.3 g/dL (6.5-8.0); Triglycerides 161 mg/dL (<150)
[2025-05-01 12:20] LABS: Free T4 (Free Thyroxine) 0.95 ng/dL (0.71-1.85); Thyroid Stimulating Hormone 4.20 uIU/mL (0.32-4.0)
== END 2025-05-01 07:33 | disposition home or self-care (01) ==
LOC: HO.WFDLDS 07:32
PROVIDERS: Visit Provider Family Medicine
DX: Z00.00 Encounter for general adult medical examination without abnormal findings (principal); E03.9 Hypothyroidism, unspecified; E78.5 Hyperlipidemia, unspecified
CPT/HCPCS: 36415; 80053; 80061; 84439; 84443; 84480

== ENCOUNTER 2025-05-09 08:22 | Outpatient (AMB) | payer MEDICARE, OTHER, SELFPAY ==
--- OUTSIDE RECORDS SUMMARY | 2025-05-09 08:35 | XMS_ITS | Patient Health Record ---
Author Organization [facility] Address [address] [place] [address] Care Team Providers Care Internal Controls Analyst Name Role Phone Bruce Hamilton Primary Care Provider Unavailab Lopez Lagunas Jr Unavailable Allergies No Known Allergies Results Component Value Reference Range Notes CT abdomen pelvis w con Reviewed date:08/08/2024 04:42:21 PM Interpretation: Performing Lab: Notes/Report: [address] [address] [address] Scan Report Signed Patient: Wade Ta MR#: [id number] 1912 : 1955 Acct:[id number] Age/Sex: 68 / F ADM Date: 08/03/24 Loc: HO.CT Attending Dr: Lopez Sprague MD Ordering Physician: Lopez Sprague MD Date of Service: 08/03/24 Procedure(s): CT abdomen pelvis w IV con Accession Number(s): [id number] cc: Lopez Sprague MD; Bruce Hamilton MD Report Number: [id number]: Total DLP = 286.00 mGy-cm CLINICAL HISTORY: [...] 08/03/24 1235 DD/ 1233 TD/TT: 08/03/24 1233 Information Technology Auditor: Creatinine GFR POC Reviewed date:08/04/2024 12:02:14 AM Interpretation: Performing Lab:[facility], [address] [place] [phone] Notes/Report: [id number] 0.86 >60 0952 HO.POHJ Creatinine POC 0.9 [...] Status Risk Notes Problem Colon cancer screening (244202630) Colon cancer screening (Z12.11) Active confirmed Problem Pre-procedure evaluation check (748946729) Encounter for other preprocedural examination (Z01.818) Active confirmed Problem Irritable bowel syndrome with diarrhea (992174663) Irritable bowel syndrome with diarrhea (K58.0) Active confirmed Problem Gastroesophageal reflux disease without esophagitis (175138640) Gastroesophageal reflux disease without esophagitis (K21.9) Active confirmed Problem Right lower quadrant pain (553541307) RLQ abdominal pain (R10.31) Active confirmed Vital Signs Blood pressure diastolic 00 mm Hg 06/14/2024 Height 62.50 in 06/14/2024 Blood pressure systolic 00 mm Hg 06/14/2024 Weight 116 lbs 06/14/2024 BMI 20.88 kg/m2 06/14/2024 Encounters Encounter Location Date Provider Diagnosis [facility] [address] [place] [phone] 06/14/2024 Lopez Sprague Jr RLQ abdominal pain R10.31 ; Gastroesophageal reflux disease without esophagitis K21.9 and Irritable bowel syndrome with diarrhea K58.0 [facility] [address] [place] [phone] 08/08/2024 Lopez Sprague Jr Assessments Encounter Date [...] Date MEDICARE OF [place] [address] [place] [address] [id number] WADE TA Self - patient is the insured [facility] [address] [place] [address] [id number] WADE TA Self - patient is the insured Medical (General) History Medical History History ICD Code Colonoscopy 07/24/16, normal screening examination, ten-year followup recommended. Hypothyroidism Hyperlipidemia Back pain Surgical History Surgery Date(Month/Year) Laparoscopy bunionectomy hysterectomy bladder suspension cyst removal
--- OUTSIDE RECORDS SUMMARY | 2025-05-09 08:36 | XMS_ITS | Data Portability ---
Author Organization [place] - [facility], Allergy Address [address] [address] Care Team Providers Care Utilization Review Coordinator Name Role Phone DAVID SHARIF Primary Care Provider DAVID SHARIF Referring Provider Assessment Encounter Date Assessment Date Assessment LastModified by Organization Details LastModified Time 03/13/2025 03/13/2025 69yo female presents for evaluation of intermittent cough and throat irritation for 2-3 years. Oropharyngeal exam and fiberoptic laryngoscopy were unremarkable without mass, lesion, or cobblestoning of the pharynx or larynx. We discussed she has many symptoms of allergic rhinitis. Recommend trial of oral antihistamine and intranasal steroid spray daily for 4-6 weeks. Offered formal skin allergy testing, but patient prefers to trial [id number] medication first. She will follow-up in 2-3 months if no improvement in symptoms. [email or web address] Not available 03/13/2025 10:43:14 Plan of Treatment Reminders Order Date Submit Date Provider Last Modified By Organization Details Last Modified Time Details Appointments None record ed. Lab None record ed. Referral None record ed. Procedures None record ed. Surgeries None record ed. Imaging None record ed. Medication Orders None record ed. Patient TargetsNo targets recorded. Patient InstructionsNo instructions recorded. Reason for Referral None Reported. Problems Name Problem SNOMED Code Status Onset Date Resolution Date Notes Provider Name and Address Organization Details Recorded Time Chronic cough 55848821 Active 025 GEOVANI LANDA PA-C 100 [facility] [address], [place], [address] [place] - [facility] 10:43:12 Throat irritation 702536191 Active 025 GEOVANI LANDA PA-C 100 [facility], [address], [place], [address], [facility] - [facility] 10:43:26 Problem Notes None recorded. Procedures Surgical History Date Name Laterality Status Provider Name and Address Organization Details Recorded Time 03/13/20 FOL_DP completed GEOVANI LANDA PA-C 100 [facility] [address], [place], [address], [facility] - [facility] 03/13/2025 10:21:53 hysterectomy completed Abigail Singer [place] - [facility] 03/13/2025 09:36:34 excision of bunion completed Abigail Singer [place] - [facility] 03/13/2025 09:37:10 Imaging Results None recorded. Procedure Notes None recorded. Medical Equipment None Reported. Allergies No known drug allergies Medications Name Sig Start Date Stop Date Status Note LastModified by Organization Details LastModified Time losartan 50 mg tablet TAKE 1 TABLET BY MOUTH EVERY DAY active Not Available Not Available No t Available azithromyci n 250 mg tablet TAKE 2 TABLETS BY MOUTH TODAY, THEN TAKE 1 TABLET DAILY FOR 4 DAYS DIRECTED 03/13 completed Not Available Not Available Not Available levothyroxi ne 25 mcg tablet TAKE 1 TABLET BY MOUTH EVERY DAY IN THE MORNING active Not Available Not Available No t Available lorazepam 0.5 mg tablet TAKE 1 TABLET BY MOUTH EVERY DAY NEEDED FOR ANXIETY FOR 30 DAYS active Not Available Not Available No t Available benzonatate 100 mg capsule TAKE 1 CAPSULE BY MOUTH THREE TIMES A DAY NEEDED FOR COUGH FOR 10 DAYS 03/13 completed Not Available Not Available Not Available losartan 25 mg tablet TAKE 1 TABLET BY MOUTH EVERY DAY 03/13 completed Not Available Not Available Not Available codeine 10 mg-guaifene sin 100 mg/5 mL oral liquid TAKE 2 TEASPOONS FUL (10 MLS) BY MOUTH ONCE NEEDED FOR COUGH FOR 5 DAYS 03/13 completed Not Available Not Available Not Available zolpidem 5 mg tablet TAKE 1 TABLET ORALLY AT BEDTIME NEEDED FOR INSOMNIA INS LIMITS 90/365 DAYS active Not Available Not Available No t Available amoxicillin 875 mg-potassiu m clavulanate 125 mg tablet TAKE 1 TABLET BY MOUTH TWICE A DAY FOR 7 DAYS 03/13 completed Not Available Not Available Not Available prednisolon e sodium phosphate 5 mg base/5 mL (6.7 mg/5 mL) oral soln TAKE 5 ML BY MOUTH TWICE A DAY. GARGAGE AND SWALLOW FOR 7 DAYS 03/13 completed Not Available Not Available Not Available ezetimibe 10 mg tablet TAKE 1 TABLET BY MOUTH EVERY DAY active Not Available Not Available No t Available Vitals Date Recorded Body height Body mass index (BMI) Body weight Provider Name and Address Organization Details Last Updated DateTime 03/13/2025 160.02 cm 23 kg/m2 86922.01 g Abigail Singer [place] - [facility] 03/13/2025 09:29:12 Social History None recorded. Functional Status Question Answer Note LastModified by Organizat ion Details LastModified Time What is your level of alcohol consumption? Occasional [email or web address] Information not available 03/13/2025 Mental Status None recorded. Family History Nothing Reported. Medical History Condition Response Allergies/Hayfever N Heart Problems N Anxiety N Tonsil Infections N Emphysema N Migraines N Thyroid Problems Y Glaucoma N Depression N COPD N Developmental Delay N Nasal or Sinus Problems N Anemia N Immune System Disorder N Anesthesia Complications N Heart Attack (MS) N Other Skin Condition N Diabetes N Rhinitis N Bleeding Disorder N Food Allergy N Arthritis N Hearing Loss N Hyperlipidemia N Cancer Y Stroke N Dementia N Nasal polyps N Asthma N Sleep Disorder N GERD/Reflux N High Cholesterol N Liver Disease N Headaches N Fibromyalgia N Hypertension N Speech Delay N Kidney Disease N Gynecological HistoryNo gynecological history recorded. Obstetrics History GPAL:G 0 P 0 0 0 0 Past Encounters Encounter ID Performer Location Encounter Start Date Encounter Closed Date Diagnosis/Indication Diagnosis SNOMED-CT Code Diagnosis ICD10 Code Diagnosis IMO Codes Diagnosis Note [id number] GEOVANI LANDA PA-C [facility] [address] [place] [address] 03/13/2025 09:17:51 03/13/2025 10:13:36 Chronic cough 09761440 R05.3 20509 Throat irritation 648609 007 J39.2 90859413 Health Concerns Section Related Observation LastModified by Organization Detai ls LastModified Time None Recorded Concern Status LastModified by Organization Details LastModified Time None Recorded Advance Directives Directive None Recorded Payers Insurance Date Sequence Insurance Name Policy Number Policy Jackson Covered Member ID Jackson Member ID Guarantor Name 03/13/2025 2 [facility] Rosalina Ortega Minor [id number] Rosalina Ortega Minor 03/13/2025 1 [place] [employer] Rosalina Harrington Nardachaitanya [id number] Rosalina Ortega Nardachaitanya 03/13/2025 2 [facility] - PLAN 1 (MEDICARE SUPPLEMENT) [id number] Rosalina Harrington Minor [id number] Rosalina Ortega Nardachaitanya Notes Date Note Type Note Provider Name and Address Organization Details Recorded Time 03/13/2025 text/html ROS as noted in the HPI 69yo female presents for evaluation of cough and throat irritation. She states these symptoms started a couple years ago. She notices a tickling sensation on the left side of her throat, followed by a cough. This occurs a few times per day. She reports associated sneezing, excess phlegm, and post nasal drip. She does not notice any cough triggers. She denies any difficulty swallowing, pain with swallowing, throat pain, globus sensation, weight loss, or heartburn. She denies a history of seasonal allergies or reflux. History of lateral and posterior-lateral headaches as well as neck tension status post physical therapy. PCP is considering referring to neurology for this. GEOVANI LANDA PA-C [address] [place] [address], [place], [address], [facility] - [facility] 03/13/2025 10:43:50 OBGyn Episode No OBEpisode recorded.
--- NOTE | 2025-05-09 08:39 | A.OFFPC_ITS ---
Vital Signs 05/09/25 08:44 Height 5 ft 3 in Weight 133 lb 8 oz BMI 23.6 BP 120/70 Blood Pressure Location Rt brachial Position Sitting Respiration 16 Pulse 79 Pulse Source Pulse Oximeter Temp 98.7 F Temp Source Oral Pulse Oximetry (%) 99 Oxygen Delivery Method Room Air Intake Visit Reasons: f/u HTN Intake Note: patient is scheduled to follow up for htn Shoulder Puncher Required: No Allergies No Known Allergies Allergy (Verified 05/09/25 08:43) Medication List - Last Reconciled 05/09/25 by Bruce Hamilton MD ezetimibe 10 mg PO DAILY 90 days levothyroxine 25 mcg PO QAM lorazepam 0.5 mg PO DAILY PRN 30 days losartan 50 mg PO DAILY 90 days zolpidem 5 mg PO BEDTIME PRN 30 days Tobacco use date assessed: 11/04/23 Dental Screening Dental Screen Date: 11/04/23 HPI f/u HTN HPI Details 69 y/o female presents to f/u hypertensi on. Blood pressure today 120/70, 79p. She is on losartan 50mg daily. Labs drawn 05/01/25. Reviewed labs with pt. Triglycerides 161. TC 245. LDL 147. HDL 66. TSH elevated at 4.20 uIU/mL. Free T4 0.95 ng/dL. Total T3 85 ng/dL. HPI Comments History of Present Illness Details Documentation assistance for Bruce Hamilton MD, was provided by Phillip Mccurdy,? Gr[employer] 1 [employer]ru 6 Visiting Teacher on 05/09/2025 at 9:11 AM EST. I, Dr. Hamilton, have read, observed, and verified documentation. ?? [facility] Medical History No pertinent past medical history Surgical History History of foot surgery History of laparoscopy History of bladder surgery History of hysterectomy Family History Father CVD (cardiovascular disease) Mother Diabetes mellitus HTN (hypertension) Social History Household Members: Spouse Both parents involved: No Caregiver staying overnight: No Housing: House Are you a primary respiratory care faculty to a significant other at home: No Do you presently have visiting nurse or other home services: No 75 years or older and lives alone: No Patient Tobacco Use Status: Former Tobacco user e-Cigarette/Vaping Use: Never Used Second Hand Smoke Exposure: No service: No Current occupational status: retired Current occupational exposures/hazards: No Cognitive needs: No Hearing needs: No Vision needs: No Questionnaire Thrive Questionnaire Date Thrive assessed: 12/26/24 I am a: Patient What is your living situation today?: I have a steady place to live Within the past 12 months, did the food you bought not last and you didn't have the money to get more?: Never true Within the past 12 months, did you worry whether your food would run out before you got money to buy more?: I choose not to answer this question Do you have trouble paying for medicines?: No Do you have trouble getting transportation to medical appointments?: No Do you have trouble paying your heating and electricity bill?: No Do you have trouble taking care of your child, family member or friend?: No Do you have trouble with day-to-day activities such as bathing, preparing meals, shopping, managing finances, etc.?: No Are you currently unemployed and looking for a job?: No Are you interested in more education?: No Please select the resources that you would like help with: None Currently or been in a relationship where the following occur: I choose not to answer THRIVE Score: 0 AP-7 AMB Questionnaire PA-7 Date PA - 7 assessed: 04/19/24 Source: Developed by Drs. Doug Naik, Aminta Manzanares, Kerwin Dobson and colleagues, with an educational eveline from [employer]. Review of Systems Const Denies chills, Denies fatigue, Denies fever(s), Denies headache(s) and Denies weakness ENT Denies dizziness and Denies headache(s) Card Denies chest pain, Denies lightheadedness, Denies dyspnea and Denies other (Palpitations) Resp Denies cough, Denies dyspnea, Denies wheezing and Denies other ( shortness of breath) Musc Denies numbness and Denies tingling Neuro Denies dizziness, Denies headache(s), Denies numbness, Denies tingling, Denies paresthesias and Denies weakness Psych Denies anxiety and Denies depression Endo Denies fatigue Aller/Immun Denies wheezing Physical exam (Primary Care) Vital Signs: Last Vital Signs Temp 98.7 F 05/09/25 08:44 Pulse 79 05/09/25 08:44 Resp 16 05/09/25 08:44 BP 120/70 05/09/25 08:44 Pulse Ox 99 05/09/25 08:44 Oxygen Delivery Method Room Air 05/09/25 08:44 BMI result Body Mass Index 23.6 Tobacco/Smoking Status: Tobacco use Status Tobacco use date assessed 11/04/23 05/09/25 08:40 Patient Tobacco Use Status Former Tobacco user 05/09/25 08:40 e-Cigarette/Vaping Use Never Used 05/09/25 08:40 Thrive Assessment: Date of Thrive Assessment Date Thrive assessed 12/26/24 05/09/25 08:40 Currently or been in a relationship where the following occur: I choose not to answer Const General: no acute distress and well developed Nutritional Appearance: well nourished Orientation/consciousness: patient oriented x3 HENMT Head: Yes normocephalic and Yes atraumatic Eyes General: appearance normal, both eyes and all related structures Pupils: Equal, round and reactive pupils present EOM: EOMs intact bilaterally Resp Effort & Inspection: normal respiratory effort Auscultation: clear to auscultation bilaterally Cardio Rate: regular rate Rhythm: regular rhythm Heart sounds: S1 normal heart sound present, S2 normal heart sound present, no gallops, no murmurs and no rubs Neuro General: patient oriented x3 and gait normal Cranial nerves: Yes Equal, round and reactive pupils present Psych Affect: normal affect Coding Level of Care Code Est Pt Level 4 (87517) Diagnoses Essential hypertension I10 Hyperlipidemia E78.5 Hypothyroidism E03.9 Assessment & Plan Assessment & Plan (1) Essential hypertension: Code(s): I10 - Essential (primary) hypertension Category: Medical Plan: Blood pressure is controlled. Goal is less than 140/90 Continue current medication (2) Hyperlipidemia: Code(s): E78.5 - Hyperlipidemia, unspecified Category: Medical Plan: LDL cholesterol remains high She will continue Zetia. Discussed statin medication again today. Patient is hesitant to try this. Will send a script to her pharmacy and she will think about whether or not to use it. Rechecking lipids with her next blood draw prior to her physical in July. (3) Hypothyroidism: Code(s): E03.9 - Hypothyroidism, unspecified Category: Medical Plan: TSH is slightly above normal range Continue levothyroxine as prescribed Will recheck with next blood draw Orders: Orders Comprehensive [place]. Panel Fast Today Z00.00 - Encounter for general adult medical examination without abnormal findings Complete Blood Count Auto Diff Today Z00.00 - Encounter for general adult medical examination without abnormal findings Lipid Panel Today Z00.00 - Encounter for general adult medical examination without abnormal findings Microalbumin, Random (w Creat) Today I10 - Essential (primary) hypertension Free T4 (Free Thyroxine) Today E03.9 - Hypothyroidism, unspecified Triiodothyronine T3 Total Today E03.9 - Hypothyroidism, unspecified Thyroid Stimulating Hormone Today E03.9 - Hypothyroidism, unspecified UA CC w/rflx Micro + Cult Today Z00.00 - Encounter for general adult medical examination without abnormal findings Medications: New atorvastatin (Lipitor) 40 mg PO BEDTIME 90 tabs 3RF 90 days Refilled lorazepam [facility] verified. Partial refill upon request. 0.5 mg PO DAILY PRN 30 tabs 0RF anxiety 30 days zolpidem [employer] verified. Partial refill upon request. 5 mg PO BEDTIME PRN 30 tabs 0RF insomnia 30 days
[2025-05-09 08:44] VITALS: BP 120/70; PULSE 79; RESP 16; TEMP 37.1; O2SAT 99; BMI 23.6
== END 2025-05-09 09:14 | disposition home or self-care (01) ==
LOC: HO.HMCFM 08:23
PROVIDERS: PCP Family Medicine; Visit Provider Family Medicine
DX: I10 Essential (primary) hypertension (principal); E78.5 Hyperlipidemia, unspecified; E03.9 Hypothyroidism, unspecified

== ENCOUNTER → 2025-05-09 08:22 | Outpatient (BNVA) | payer MEDICARE, OTHER, SELFPAY | PROVIDERS: PCP Family Medicine; Visit Provider Family Medicine | DX: I10 Essential (primary) hypertension (principal); E78.5 Hyperlipidemia, unspecified; E03.9 Hypothyroidism, unspecified | CPT/HCPCS: 99212 ==